=== PATIENT | male | born 1950 | race Caucasian/White ===

== ENCOUNTER 2018-06-18 07:56 | Day surgery (SDC) | payer MEDICARE, OTHER, SELFPAY ==
[2018-06-05 14:50] VITALS: BMI 27.8
[2018-06-18] VITALS (9 sets, daily range): BP systolic 93–159; BP diastolic 48–92; PULSE 45–73; RESP 10–16; TEMP 35.7–36.7; O2SAT 96–100; BMI 27.8
[2018-06-18] MEDS: ACETAMINOPHEN 325 MG TABLET 975 MG PO (09:03)
[2018-06-18] MEDS: CELECOXIB 200 MG CAPSULE PO (09:03)
[2018-06-18] MEDS: PREGABALIN 75 MG CAPSULE PO (09:03)
[2018-06-18] MEDS: LACTATED RINGERS 1,000 ML 42 ML IV (09:10)
--- NOTE | 2018-06-18 09:18 | PM.PREOP ---
Pre-operative Note Interval Note Pre-op Check: Yes History & Physical Reviewed by Physician and Yes Exam Performed Changes: No
--- NOTE | 2018-06-18 09:18 | PM.OP.1 ---
Operative Date/Time/Diagnoses Date of procedure: 06/18/18 Time of procedure: 11:05 Pre-op diagnosis: Left knee medial compartment osteoarthritis Post-op diagnosis: same Procedure & Clinicians Procedure: Left knee medial compartment arthroplasty Same procedure as scheduled: Yes Indications: The patient presents today for medial compartment knee arthroplasty after failure of conservative treatment. The nature of the procedure including the risks and benefits, alternatives, postoperative course and expected outcome were discussed and all questions answered. Consent was obtained. Operative site confirmed and marked. Surgeon: Bryce Thomas Manufacturing Technology Analyst: Osvaldo Slater Anesthesia Type: General and Local Operative Notes Findings: Severe medial compartment osteoarthritis. Closure Type: primary Specimen(s): none sent Implants & Drains: [employer] and [employer] ZUK: E femur, 4 tibia, 8 mm polyethylene tray. Applied: implant(s) Estimated Blood Loss (mL): 40 Blood products transfused: none Tourniquet time (min): 32 Procedure in detail: The patient was taken to the operative suite and placed under general anesthesia. The patient received prophylactic antibiotics 1 g of IV tranexamic acid prior to surgery. [The lateral aspect of the leg was prepped and the knee injected with 20 mL of 1% lidocaine with epinephrine.] The leg was prepped and draped in usual sterile fashion. The leg was exsanguinated with an Esmarch dressing and the tourniquet raised to 250 torr. A 10 cm medial parapatellar incision and arthrotomy was then made. The anterior aspect of the fat pad and medial meniscus was resected. A small amount of anterior tibial boss was resected with a oscillating saw. The knee was then extended and the alignment guide placed. The distal femoral and proximal tibial cutting guides were then pinned into place. The distal femoral cut was made in extension. The proximal tibial cut was made in flexion. All remaining meniscus was excised. Gaps were checked with blocks. Soft tissues were then injected with a combination of [40 mL of quarter percent Marcaine with epinephrine, 20 mL of Exparel]. The femur was sized and the appropriate cutting guide placed. The peg holes were drilled and chamfer cuts made. Next the tibia was sized and drilled. Trial components were then placed. The knee had good roman catholic of soft tissue tension without over correction. Range of motion was [full]. The trial components were removed. The knee was cleansed with Pulsavac irrigation and dried. The components were then cemented with high viscosity vacuum mixed bone cement. The knee was held in extension until the cement had adequately cured. The knee was then irrigated and inspected for any further debris. The extensor mechanism was closed at 90? of flexion with a few interrupted #1 Vicryl sutures and a running O V-LOC suture. [The knee was then filled with 50 mL of solution containing 1 g of tranexamic acid and 10 mL of 0.5% Marcaine.] The subcutaneous tissue was closed with 2-0 Vicryl. The skin was closed with a running 3 0 V-LOC suture and surgical adhesive. An Aquacel dressing was applied. The leg was then wrapped with an Gurwinder which will be kept on for the first 24 hours. The patient tolerated the procedure well and was returned to recovery room in good condition. Complications: none Condition: stable Disposition: same day surgery Plan for aftercare: Routine aftercare for medial compartment arthroplasty. Discharge to home. Weightbearing as tolerated. Aspirin for DVT prophylaxis. Clinic follow-up in 2 weeks. Physical therapy to start within 1 week.
[2018-06-18] MEDS: CEFAZOLIN 2 GM/100 ML FROZ.PIGGY IV (10:06)
[2018-06-18] MEDS: TRANEXAMIC ACID 1,000 MG VIAL 1000 MG INJ (10:15)
--- NOTE | 2018-06-18 10:32 | SUR.OPER ---
Supine on padded OR bed. Pillow under head, arms secured on padded armboards <90 degree abduction. Safety belt across torso. Non-operative leg secured with tape over blanket over lower leg. Operative leg secured in DeMayo/Efren positioner. Foam padded brace at thigh of operative leg.
[2018-06-18] MEDS: BUPIVACAINE 0.5% W/ EPI (PF) 20 ML, BUPIVACAINE LIPOSOME 266 MG, SODIUM CHLORIDE 0.9% 2... INJ (10:40)
[2018-06-18] MEDS: BUPIVACAINE 0.5% (PF) 10 ML, TRANEXAMIC ACID 1,000 MG, SODIUM CHLORIDE 0.9% 20 ML INJ (10:40)
[2018-06-18] MEDS: POVIDONE-IODINE 15 ML, SODIUM CHLORIDE 0.9% 250 ML TOP (10:41)
[2018-06-18] MEDS: OXYCODONE/ACETAMINOPHEN 5/325 TABLET 1 TAB PO (12:05)
== END 2018-06-18 13:05 | disposition home or self-care (01) ==
PROVIDERS: PCP Physician Assistant; Visit Provider Orthopaedic Surgery
PROC: (CPT 27446; principal; 2018-06-18 09:45)
DX: M17.12 Unilateral primary osteoarthritis, left knee (principal)
CPT/HCPCS: 27446; C1776; C9290; J0690; J2405; J2704; J3010

== ENCOUNTER → 2018-10-07 08:49 | Outpatient (CLI) | payer MEDICARE, OTHER, SELFPAY ==
[2018-10-07 09:56] LABS: BUN Creatinine Ratio 16.3 (6-22); Blood Urea Nitrogen 13 mg/dL (9-20); Calcium 9.6 mg/dL (8.4-10.2); Carbon Dioxide 27 mmol/L (22-32); Chloride 100 mmol/L (98-107); Cholesterol 278 mg/dL (140-199); Estimated Glomerular Filt Rate > 60.0 mL/min (>60); Glucose 96 mg/dL (80-110); HDL Cholesterol 62 mg/dL (40-60); HEMOLYSIS < 15 (0-50); LDL Cholesterol Calculated 191 mg/dL (<100); Potassium 4.3 mmol/L (3.4-5.1); Sodium 139 mmol/L (137-145); Triglycerides 127 mg/dL (35-150)
== END ==
PROVIDERS: Visit Provider Physician Assistant
DX: E74.8 Other specified disorders of carbohydrate metabolism (principal)
CPT/HCPCS: 36415; 80048; 80061

== ENCOUNTER → 2020-03-03 08:40 | Outpatient (CLI) | payer MEDICARE, OTHER, SELFPAY ==
[2020-03-03 09:42] LABS: Hemoglobin A1C% w Est Avg Glu 5.5 % (4.0-6.0)
[2020-03-03 09:56] LABS: Alanine Aminotransferase 39 IU/L (<50); Albumin 4.4 g/dL (3.5-5.0); Albumin Globulin Ratio 1.4 (1.0-2.8); Alkaline Phosphatase 53 U/L (38-126); Aspartate Aminotransferase 93 IU/L (17-59); BUN Creatinine Ratio 15.7 (6-22); Bilirubin Total 0.9 mg/dL (0.2-1.3); Blood Urea Nitrogen 13 mg/dL (9-20); Carbon Dioxide 30 mmol/L (22-32); Chloride 98 mmol/L (98-107); Cholesterol 258 mg/dL (140-199); Estimated Glomerular Filt Rate > 60.0 mL/min (>60); Globulin 3.1 g/dL (1.7-4.1); Glucose 90 mg/dL (80-110); HDL Cholesterol 49 mg/dL (40-60); HEMOLYSIS < 15 (0-50); LDL Cholesterol Calculated 188 mg/dL (<100); Potassium 4.4 mmol/L (3.4-5.1); Sodium 135 mmol/L (137-145); Total Protein 7.5 g/dL (6.3-8.2); Triglycerides 106 mg/dL (35-150)
[2020-03-03 10:23] LABS: Prostate Specific Antigen Scrn 0.798 ng/mL (0.1-4.0); TSH w/ Reflex to FT4 2.05 uIU/mL (0.47-4.68)
== END ==
PROVIDERS: Referring Provider Family Medicine; Visit Provider Family Medicine
DX: Z13.1 Encounter for screening for diabetes mellitus (principal); Z76.89 Persons encountering health services in other specified circumstances; Z13.29 Encounter for screening for other suspected endocrine disorder; Z12.5 Encounter for screening for malignant neoplasm of prostate; R73.09 Other abnormal glucose; E78.00 Pure hypercholesterolemia, unspecified; R53.83 Other fatigue
CPT/HCPCS: 36415; 80053; 80061; 83036; 84443; G0103

== ENCOUNTER → 2020-06-09 14:46 | Outpatient (CLI) | payer MEDICARE, OTHER, SELFPAY ==
[2020-06-11 11:36] LABS: COVID19 Sendout Not Detected (Not Detected)
== END ==
PROVIDERS: Visit Provider Physician Assistant
DX: Z03.818 Encounter for observation for suspected exposure to other biological agents ruled out (principal)
CPT/HCPCS: 87635

== ENCOUNTER 2021-02-12 09:55 | Outpatient (RCR) | payer MEDICARE, OTHER, SELFPAY ==
--- NOTE | 2021-02-12 14:14 | PT.OIE ---
Current Diagnoses Strain of muscle, fascia and tendon of lower back, initial encounter (02/12/21) Strain of muscle, fascia and tendon of lower back, subsequent encounter (02/12/21) Past Medical History (Last Reviewed 01/12/21 @ 13:02 by Radhames Dinero DO) Actinic keratosis Ankle pain, right Arthritis of both knees Back pain, chronic Elevated liver function tests Environmental allergies Fractures Hearing deficit History of headache History of migraine headaches Lumbar strain Bhumika's disease Positive PPD (~1992) Retinal scar Shoulder pain Tinnitus (~2012) Past Surgical History (Last Updated 06/05/18 @ 15:23 by Jaylin Vazquez RN) H/O hernia repair (~1957) History of colonoscopy (~2012) History of surgery on arm (~09/18/15) History of tonsillectomy Visit Care Team Role Provider Type Radhames Dinero DO Attending Provider Physician Primary Care Provider Referring Provider Specialty: [facility] Address: [address] [place] [address] Email: [email or web address] Therapy Initial Evaluation PT-OP-A Visit Information Start: 02/12/21 14:00 Freq: Status: Active Protocol: Document 02/12/21 10:30 DCW (Rec: 02/12/21 14:08 [facility] [id number]) Out-Patient Physical Therapy Visit Information Visit Information Visit Type Initial Evaluation Visit Start Time 10:30 Visit Stop Time 11:10 Total Visit Minutes 40 Visit Number 1 Number of REHABILITATION COUNSELLOR Visits 0 Evaluation Information Evaluation Date 02/12/21 PT-OP-B Current Condition Start: 02/12/21 14:00 Freq: Status: Active Protocol: Document 02/12/21 10:30 DCW (Rec: 02/12/21 14:08 [facility] [id number]) Current Condition History of Current Condition Onset Date One month Current Complaints Low back pain History of Current Condition Pt is a 70 year old male presenting with a one month history of low back pain. Pt reports he was shoveling snow for four hours one day, and was pretty sore, and then the next day was loading tools into his vehicle, and experienced increased pain and tightness along his left low back. 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 At the moment, pt does not have any real problems, but wanted to come in to his eval in order to assess his back and make sure there was nothing else going on, and to learn some appropriate stretches. Prior Functional Status Baseline Function- ADL's Independent Baseline Function- Mobility Independent Current Functional Impairments (Reported) Functional Limitations- ADL's Independent Functional Limitations- Mobility/Gait Independent Functional Limitations- Recreation/ Independent Hobbies PT-OP-C Subjective Start: 02/12/21 14:00 Freq: Status: Active Protocol: Document 02/12/21 10:30 DCW (Rec: 02/12/21 14:08 DCW [id number]) OP-PT Subjective Patient Comments Patient Comments I do yoga every morning, and that has really helped. Patient Reported Progress Improving Patient Questionnaires Oswestry Low Back Index Oswestry Score 14% Oswestry Impairment 1 to 19% Impaired (Score 1-19) OP-PT Pain Assessment Pain Assessment Grid Paper Pain Assessment Grid Completed Yes Location Lower Back Intensity 1 Scale Used Numeric (0 - 10) PT-OP-F Manual Assessment Start: 02/12/21 14:00 Freq: Status: Active Protocol: Document 02/12/21 10:30 DCW (Rec: 02/12/21 14:11 DCW [id number]) Manual Assessments Soft Tissue Assessment Soft Tissue Mobility Assessment Mild tone with tenderness to palpation 1/4: Complaint of pain along left QL, left piriformis PT-OP-K Range of Motion Start: 02/12/21 14:00 Freq: Status: Active Protocol: Document 02/12/21 10:30 DCW (Rec: 02/12/21 14:11 DCW [id number]) Lumbar Spine Range of Motion Lumbar Spine Active Percentage Testing Position Standing Flexion 100 Extension 100 Lateral Flexion Left 100 Lateral Flexion Right 100 PT-OP-L Special Tests Start: 02/12/21 14:00 Freq: Status: Active Protocol: Document 02/12/21 10:30 DCW (Rec: 02/12/21 14:11 DCW [id number]) Special Tests Lumbar Spine Special Tests Compression Test Results Negative Slump Test Results Negative PT-OP-Q Treatments Start: 02/12/21 14:00 Freq: Status: Active Protocol: Document 02/12/21 10:30 DCW (Rec: 02/12/21 14:11 [facility] [id number]) Therapeutic Exercises Supine Exercises 1 Supine Exercise Name Piriformis stretch Side left Comments Figure-4, Knee to opposite shoulder Sitting Exercises 1 Sitting Exercise Name Piriformis stretch Side left Comments Seated figure-4 PT-OP-T Assessment and Plan Start: 02/12/21 14:00 Freq: Status: Active Protocol: Document 02/12/21 10:30 DCW (Rec: 02/12/21 14:14 [facility] [id number]) Physical Therapy Assessment Rehab Potential Rehabilitation Potential Excellent Evaluation Complexity Number of Personal Factors/Comorbidities 0 Number of Body Systems Impaired 1-2 Clinical Presentation at Evaluation Stable Assessment Summary Assessment Pt has largely recovered from initial injury one month ago. Pt mainly interested today in new stretches for low back and posterior hips. Pt very active with hobbies and yoga, overall in very good shape. Presenting with very mild tightness in left QL and piriformis, comfortable with HEP stretches given at evaluation. Pt agreeable to discharge following eval, does not feel he needs any further treatment or instruction. Physical Therapy Plan Frequency and Duration Frequency of Treatment 1x/Week Duration of Treatment 1 day Plan of Care Start Date 02/12/21 Plan of Care End Date 02/13/21 Discharge Physical Therapy Discharge Comments No further PT indicated - Eval and discharge Next Visit Focus/Plan Next Note Type Discharge Summary
--- NOTE | 2021-02-12 14:15 | PT.OPPOC ---
Physical, Occupational & Speech Therapy At [facility] Current Diagnoses Strain of muscle, fascia and tendon of lower back, initial encounter (02/12/21) Strain of muscle, fascia and tendon of lower back, subsequent encounter (02/12/21) Visit Care Team Role Provider Type Radhames Dinero DO Attending Provider Physician Primary Care Provider Referring Provider Specialty: [facility] Address: [address] [place] [address], [facility] Email: [email or web address] Plan Of Care PT-OP-T Assessment and Plan Start: 02/12/21 14:00 Freq: Status: Active Protocol: Document 02/12/21 10:30 DCW (Rec: 02/12/21 14:14 DCW [id number]) Physical Therapy Assessment Rehab Potential Rehabilitation Potential Excellent Evaluation Complexity Number of Personal Factors/Comorbidities 0 Number of Body Systems Impaired 1-2 Clinical Presentation at Evaluation Stable Assessment Summary Assessment Pt has largely recovered from initial injury one month ago. Pt mainly interested today in new stretches for low back and posterior hips. Pt very active with hobbies and yoga, overall in very good shape. Presenting with very mild tightness in left QL and piriformis, comfortable with HEP stretches given at evaluation. Pt agreeable to discharge following eval, does not feel he needs any further treatment or instruction. Physical Therapy Plan Frequency and Duration Frequency of Treatment 1x/Week Duration of Treatment 1 day Plan of Care Start Date 02/12/21 Plan of Care End Date 02/13/21 Discharge Physical Therapy Discharge Comments No further PT indicated - Eval and discharge Next Visit Focus/Plan Next Note Type Discharge Summary Plan of Care Dates Plan of Care Start Date 02/12/21 Plan of Care End Date 02/13/21 Electronically Signed by: Alex Nayak, PT 02/12/21 1619 Please Sign and Return: I have reviewed this Plan of Care and certify that the skilled therapy services above are required to meet the patient?s needs. Physician Signature Date Printed Name and Credentials Clinical Instructor Signature Printed Name and Credentials
== END 2021-02-12 14:26 | disposition home or self-care (01) ==
LOC: PHYS 09:55
PROVIDERS: PCP Family Medicine; Referring Provider Family Medicine; Visit Provider Family Medicine
DX: S39.012A Strain of muscle, fascia and tendon of lower back, initial encounter (principal); S39.012D Strain of muscle, fascia and tendon of lower back, subsequent encounter
CPT/HCPCS: 97110; 97161

== ENCOUNTER → 2021-03-05 09:39 | Outpatient (CLI) | payer MEDICARE, OTHER, SELFPAY ==
[2021-03-05 10:35] LABS: Add Manual Diff / Slide Review NO; Basophils Absolute Auto 0 /uL (0-100); Eosinophils Absolute Auto 200 /uL (0-450); Hematocrit 39.4 % (41-53); Hemoglobin 13.6 g/dL (13.5-17.5); Lymphocytes Absolute Auto 1700 /uL (1100-4500); Lymphocytes Percent Auto 34.9 % (25-40); Mean Corpuscular HGB Conc 34.6 % (30-36); Mean Corpuscular Hemoglobin 31.5 PG (26-34); Mean Corpuscular Volume 91.1 fL (80-100); Monocytes Absolute Auto 500 /uL (0-900); Monocytes Percent Auto 10.2 % (3-14); Neutrophils Absolute Auto 2400 /uL (1500-7000); Neutrophils Percent Auto 48.9 % (50-75); Platelet Count 260 X10^3/uL (150-400); Red Blood Cell Count 4.32 X10^6/uL (4.5-5.9); Red Cell Distribution Width 13.2 % (11.6-14.8); White Blood Cell Count 4.8 X10^3/uL (4.5-11.0)
[2021-03-05 11:02] LABS: Alanine Aminotransferase 66 IU/L (<50); Albumin 4.2 g/dL (3.5-5.0); Albumin Globulin Ratio 1.3 (1.0-2.8); Alkaline Phosphatase 52 U/L (38-126); Aspartate Aminotransferase 91 IU/L (17-59); BUN Creatinine Ratio 18.4 (6-22); Bilirubin Total 0.5 mg/dL (0.2-1.3); Blood Urea Nitrogen 14 mg/dL (9-20); Calcium 9.7 mg/dL (8.4-10.2); Carbon Dioxide 29 mmol/L (22-32); Chloride 103 mmol/L (98-107); Cholesterol 248 mg/dL (140-199); Estimated Glomerular Filt Rate > 60.0 mL/min (>60); Globulin 3.2 g/dL (1.7-4.1); Glucose 102 mg/dL (80-110); HDL Cholesterol 54 mg/dL (40-60); HEMOLYSIS < 15 (0-50); LDL Cholesterol Calculated 171 mg/dL (<100); Potassium 5.1 mmol/L (3.4-5.1); Sodium 137 mmol/L (137-145); Total Protein 7.4 g/dL (6.3-8.2); Triglycerides 117 mg/dL (35-150)
[2021-03-05 11:28] LABS: Prostate Specific Antigen Scrn 1.04 ng/mL (0.1-4.0)
[2021-03-05 11:30] LABS: TSH w/ Reflex to FT4 1.81 uIU/mL (0.47-4.68)
== END ==
PROVIDERS: PCP Family Medicine; Referring Provider Family Medicine; Visit Provider Family Medicine
DX: Z00.00 Encounter for general adult medical examination without abnormal findings (principal); R03.0 Elevated blood-pressure reading, without diagnosis of hypertension; Z12.5 Encounter for screening for malignant neoplasm of prostate; Z13.220 Encounter for screening for lipoid disorders; Z13.228 Encounter for screening for other metabolic disorders; Z13.29 Encounter for screening for other suspected endocrine disorder; E78.5 Hyperlipidemia, unspecified
CPT/HCPCS: 36415; 80053; 80061; 84443; 85025; G0103

== ENCOUNTER → 2021-11-30 13:13 | Outpatient (CLI) | payer MEDICARE, OTHER, SELFPAY ==
[2021-11-30 18:50] LABS: COVID19 -Nasal RAPID Negative (Negative)
== END ==
PROVIDERS: PCP Family Medicine; Visit Provider Nurse Practitioner Family
DX: Z20.822 Contact with and (suspected) exposure to COVID-19 (principal); R09.89 Other specified symptoms and signs involving the circulatory and respiratory systems
CPT/HCPCS: 87635

== ENCOUNTER → 2022-01-28 12:24 | Outpatient (CLI) | payer MEDICARE, OTHER, SELFPAY ==
[2022-01-28 14:05] LABS: Influenza A - CEPHEID Flu A NEGATIVE (NEGATIVE); Influenza B - CEPHEID Flu B NEGATIVE (NEGATIVE)
[2022-01-28 14:06] LABS: COVID-19 CEPHEID PCR (VTM/NP) Negative (Negative)
== END ==
PROVIDERS: PCP Family Medicine; Visit Provider Student in an Organized Health Care Education/Training Program
DX: R50.9 Fever, unspecified (principal); Z20.822 Contact with and (suspected) exposure to COVID-19
CPT/HCPCS: 0240U

== ENCOUNTER → 2023-01-14 10:35 | Outpatient (CLI) | payer MEDICARE, OTHER, SELFPAY ==
[2023-01-14 10:59] LABS: Add Manual Diff / Slide Review NO; Basophils Absolute Auto 0 /uL (0-100); Basophils Percent Auto 0.6 % (0-2); Eosinophils Absolute Auto 100 /uL (0-450); Eosinophils Percent Auto 2.1 % (2-4); Hematocrit 39.4 % (41-53); Hemoglobin 13.4 g/dL (13.5-17.5); Lymphocytes Absolute Auto 1800 /uL (1100-4500); Mean Corpuscular Hemoglobin 30.6 PG (26-34); Mean Corpuscular Volume 90.2 fL (80-100); Monocytes Absolute Auto 500 /uL (0-900); Monocytes Percent Auto 8.9 % (3-14); Neutrophils Absolute Auto 3300 /uL (1500-7000); Neutrophils Percent Auto 57.4 % (50-75); Platelet Count 288 X10^3/uL (150-400); Red Blood Cell Count 4.37 X10^6/uL (4.5-5.9); Red Cell Distribution Width 13.8 % (11.6-14.8); White Blood Cell Count 5.7 X10^3/uL (4.5-11.0)
[2023-01-14 11:06] LABS: Alanine Aminotransferase 40 IU/L (<50); Albumin 4.3 g/dL (3.5-5.0); Albumin Globulin Ratio 1.1 (1.0-2.8); Alkaline Phosphatase 66 U/L (38-126); Aspartate Aminotransferase 62 IU/L (17-59); BUN Creatinine Ratio 17.9 (6-22); Bilirubin Total 0.6 mg/dL (0.2-1.3); Blood Urea Nitrogen 17 mg/dL (9-20); Calcium 9.1 mg/dL (8.4-10.2); Carbon Dioxide 30 mmol/L (22-32); Chloride 99 mmol/L (98-107); Cholesterol 261 mg/dL (140-199); Estimated Glomerular Filt Rate > 60 mL/min (>60); Globulin 3.9 g/dL (1.7-4.1); Glucose 98 mg/dL (80-110); HDL Cholesterol 46 mg/dL (40-60); HEMOLYSIS < 15 (0-50); LDL Cholesterol Calculated 187 mg/dL (<100); Potassium 4.5 mmol/L (3.4-5.1); Sodium 136 mmol/L (137-145); Total Protein 8.2 g/dL (6.3-8.2); Triglycerides 140 mg/dL (35-150)
[2023-01-14 11:34] LABS: Prostate Specific Antigen Scrn 1.46 ng/mL (0.1-4.0)
[2023-01-14 12:03] LABS: TSH w/ Reflex to FT4 2.04 uIU/mL (0.47-4.68)
== END ==
PROVIDERS: PCP Family Medicine; Referring Provider Family Medicine; Visit Provider Family Medicine
DX: Z00.00 Encounter for general adult medical examination without abnormal findings (principal); E74.04 McArdle disease; E78.5 Hyperlipidemia, unspecified; Z12.5 Encounter for screening for malignant neoplasm of prostate; R94.5 Abnormal results of liver function studies
CPT/HCPCS: 36415; 80053; 80061; 84443; 85025; G0103

== ENCOUNTER → 2023-03-20 12:17 | Outpatient (CLI) | payer MEDICARE, OTHER, SELFPAY ==
[2023-03-20 13:32] LABS: Influenza A - CEPHEID Flu A NEGATIVE (NEGATIVE); Influenza B - CEPHEID Flu B NEGATIVE (NEGATIVE); Respiratory Syncytial Virus Negative (Negative)
[2023-03-20 13:34] LABS: COVID-19 CEPHEID 4-PLEX PCR Negative (Negative)
== END ==
PROVIDERS: PCP Family Medicine; Visit Provider Nurse Practitioner Family
DX: R05.1 Acute cough (principal); Z20.822 Contact with and (suspected) exposure to COVID-19
CPT/HCPCS: 0241U

== ENCOUNTER → 2023-12-10 09:33 | Outpatient (CLI) | payer MEDICARE, OTHER, SELFPAY ==
[2023-12-10 10:23] LABS: Add Manual Diff / Slide Review NO; Basophils Absolute Auto 0 /uL (0-100); Basophils Percent Auto 0.7 % (0-2); Eosinophils Absolute Auto 200 /uL (0-450); Eosinophils Percent Auto 2.5 % (2-4); Hematocrit 38.3 % (41-53); Hemoglobin 13.2 g/dL (13.5-17.5); Lymphocytes Absolute Auto 1600 /uL (1100-4500); Lymphocytes Percent Auto 21.2 % (25-40); Mean Corpuscular HGB Conc 34.5 % (30-36); Mean Corpuscular Hemoglobin 30.8 PG (26-34); Mean Corpuscular Volume 89.3 fL (80-100); Monocytes Absolute Auto 600 /uL (0-900); Monocytes Percent Auto 8.5 % (3-14); Neutrophils Absolute Auto 4900 /uL (1500-7000); Neutrophils Percent Auto 67.1 % (50-75); Platelet Count 275 X10^3/uL (150-400); Red Blood Cell Count 4.28 X10^6/uL (4.5-5.9); White Blood Cell Count 7.3 X10^3/uL (4.5-11.0)
[2023-12-10 11:49] LABS: HEMOLYSIS < 15 (0-50); Iron 163 ug/dL (49-181)
[2023-12-10 11:59] LABS: Percent Iron Saturation 52 % (20-50); Total Iron Binding Capacity 311 ug/dL (261-462); Transferrin 267 mg/dL (206-381)
[2023-12-10 12:16] LABS: Ferritin 41 ng/mL (18-464)
== END ==
LOC: LAB 09:35
PROVIDERS: PCP Family Medicine; Referring Provider Family Medicine; Visit Provider Family Medicine
DX: D64.9 Anemia, unspecified (principal)
CPT/HCPCS: 36415; 82728; 83540; 83550; 85025

== ENCOUNTER → 2024-01-15 09:38 | Outpatient (CLI) | payer MEDICARE, OTHER, SELFPAY ==
[2024-01-15 10:42] LABS: Alanine Aminotransferase 26 IU/L (<50); Albumin 4.3 g/dL (3.5-5.0); Albumin Globulin Ratio 1.3 (1.0-2.8); Alkaline Phosphatase 58 U/L (38-126); Aspartate Aminotransferase 39 IU/L (17-59); BUN Creatinine Ratio 17.8 (6-22); Bilirubin Total 0.8 mg/dL (0.2-1.3); Blood Urea Nitrogen 19 mg/dL (9-20); Calcium 9.7 mg/dL (8.4-10.2); Carbon Dioxide 31 mmol/L (22-32); Chloride 101 mmol/L (98-107); Estimated Glomerular Filt Rate > 60 mL/min (>60); Globulin 3.4 g/dL (1.7-4.1); Glucose 90 mg/dL (80-110); HEMOLYSIS < 15 (0-50); Potassium 4.5 mmol/L (3.4-5.1); Sodium 134 mmol/L (137-145); Total Protein 7.7 g/dL (6.3-8.2)
[2024-01-15 11:15] LABS: Prostate Specific Antigen Scrn 1.52 ng/mL (0.1-4.0)
[2024-01-15 11:34] LABS: Vitamin B12 641 pg/mL (239-931)
== END ==
LOC: LAB 09:40
PROVIDERS: PCP Family Medicine; Referring Provider Family Medicine; Visit Provider Family Medicine
DX: Z12.5 Encounter for screening for malignant neoplasm of prostate (principal); E78.5 Hyperlipidemia, unspecified; D64.9 Anemia, unspecified; E74.04 McArdle disease
CPT/HCPCS: 36415; 80053; 82607; 85045; G0103

== ENCOUNTER 2024-01-23 14:31 | Day surgery (SDC) | payer MEDICARE, OTHER, SELFPAY ==
[2024-01-23 14:51] VITALS: BP 157/87; PULSE 68; RESP 16; TEMP 36.6; O2SAT 98
[2024-01-23] MEDS: LACTATED RINGERS 1,000 ML 42 ML IV (15:08)
--- NOTE | 2024-01-23 15:36 | P.HP_ITS ---
History of Present Illness History of Present Illness Date Patient Seen: 01/23/24 Time Patient Seen: 15:37 Chief complaint: Screening Colonoscopy Narrative: 73-year-old man here for screening colonoscopy. Last colonoscopy 10 years ago normal. No family history of intestinal malignancy. No abdominal concerns today. 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 Tinnitus (~2012) Bhumika's disease Surgical History History of tonsillectomy H/O hernia repair (~1957) History of colonoscopy (~2012) History of surgery on arm (~09/18/15) Social History household members: spouse Smoking Status: Never smoker alcohol intake: current Meds Home Medications and Allergies Home Medications Medication Instructions Recorded Confirmed Type cholecalciferol (vitamin D3) 25 1,000 unit PO DAILY 06/05/18 01/15/24 History mcg (1,000 unit) capsule (Vitamin D3) yporciwemehf-vrvohtlr-sajltl 1 tab PO DAILY 06/05/18 01/15/24 History tablet (Multivitamin 50 Plus tablet) vit C 250 mg-vit E 90 mg-zinc 40 1 tab PO BID 06/11/18 01/15/24 History mg-copper 1 jk-kbebma-qmllez capsule (PreserVision AREDS-2) aspirin 81 mg tablet,delayed 81 mg PO DAILY 06/18/18 01/23/24 History release (Aspir-) peg 3350-sod sulf,ahsgl-hlv-dbr 1,000 ml PO DIRECTED #2,000 mL 12/16/23 01/15/24 Rx 178.7-7.3-0.5-1.12-0.9 gram oral soln (Suflave) ashwagandha extract PO 01/15/24 01/15/24 History coenzyme Q10 [Ultra CoQ10] PO 01/15/24 01/15/24 History magnesium chloride PO 01/15/24 01/15/24 History omega-3 fatty acids [Fish Oil] PO 01/15/24 01/15/24 History triamcinolone acetonide 0.1 % 1 applic topical DAILY #30 grams 01/15/24 01/15/24 Rx topical cream vitamin K2 PO 01/15/24 01/15/24 History Allergies Allergy/AdvReac Type Severity Reaction Status Date / Time No Known Drug Allergies Allergy Verified 01/23/24 14:49 Exam Vital Signs (past 8 hours): - 01/23/24 14:51 Temperature 98 F Pulse Rate 68 Respiratory Rate 16 Blood Pressure 157/87 H Pulse Oximetry 98 Oxygen Delivery Method Room Air Oxygen Delivery Method Room Air Narrative Exam Narrative: General adult man alert oriented no acute distress Chest nonlabored respiration Extremities warm well perfused Assessment & Plan Assessment & Plan narrative: The patient requires colorectal screening and colonoscopy is recommended. Technical details were discussed. Risks, benefits, alternatives explained. Risks including but not limited to myocardial infarction, aspiration, bleeding, pain, missed lesion, incomplete examination, need for further radiographic studies, colonic perforation, and need for major abdominal surgery were discussed. All questions were answered to their satisfaction, and they are in agreement with this plan.
[2024-01-23 16:01] VITALS: BP 120/70; PULSE 58; RESP 12; TEMP 36.7; O2SAT 96
[2024-01-23 16:07] VITALS: BP 129/79; PULSE 61; RESP 14; O2SAT 97
--- NOTE | 2024-01-23 16:10 | P.OP.COLON_ITS ---
Operative Date/Time/Diagnoses Date of procedure: 01/23/24 Time of procedure: 16:10 Pre-op diagnosis: Colorectal screening Procedure & Clinicians Study performed: Colonoscopy Same procedure as scheduled: Yes Indications: Colorectal screening Surgeon: Geronimo Lu Procedure Notes Procedure in detail: The history and physical was performed/updated and the patient is ASA class is 2. The procedure was discussed in detail with the patient. Potential risks complications including infection, bleeding, missed diagnosis, perforation, need for surgery, and were explained. Their questions were answered and informed consent was obtained. Patient was brought to the procedure room and placed standard monitoring equipment. The patient's vital signs were monitored continuously throughout the entire procedure. Prior to starting time-out was performed. The patient was placed in the left lateral recumbent position. Procedural sedation was administered by anesthesia. Examination began with a thorough inspection of the perianal area there was no evidence of fissures, fistulae, external hemorrhoids or cutaneous malignancy. The colonoscopy scope was then placed into the anal canal and was advanced to the cecum, which was identified by the ileocecal valve , the appendiceal orifice and the confluence of the taenia. The scope was then slowly withdrawn examining colon thoroughly in all directions, irrigating it of any residual stool. The scope was retroflexed within the rectum The patient tolerated the procedure well. They will be discharged once criteria are met. The prep was of good/excellent quality. The withdrawl time was 6 minutes. FINDINGS * Unremarkable colonoscopy. Normal healthy colonic mucosa without masses polyps or inflammation. Specimen(s): none sent Impression: Normal colonoscopy Post-procedure Plan for aftercare: No further colonoscopy necessary Disposition: same day surgery
[2024-01-23 16:12] VITALS: BP 143/85; PULSE 62; RESP 12; O2SAT 98
[2024-01-23 16:17] VITALS: BP 152/87; PULSE 57; RESP 16; O2SAT 98
== END 2024-01-23 16:36 | disposition home or self-care (01) ==
PROVIDERS: PCP Family Medicine; Referring Provider Surgery; Visit Provider Surgery
PROC: 0DJD8ZZ Inspection of Lower Intestinal Tract, Via Natural or Artificial Opening Endoscopic (ICD-10-PCS; CPT 45378; principal; 2024-01-23 14:00)
DX: Z12.11 Encounter for screening for malignant neoplasm of colon (principal)
CPT/HCPCS: G0121; J2704

== ENCOUNTER → 2024-04-07 15:54 | Outpatient (CLI) | payer MEDICARE, OTHER, SELFPAY ==
[2024-04-07 17:17] LABS: Add Manual Diff / Slide Review NO; Basophils Absolute Auto 100 /uL (0-100); Basophils Percent Auto 0.8 % (0-2); Eosinophils Absolute Auto 100 /uL (0-450); Eosinophils Percent Auto 1.7 % (2-4); Hematocrit 39.6 % (41-53); Hemoglobin 13.5 g/dL (13.5-17.5); Lymphocytes Absolute Auto 2500 /uL (1100-4500); Lymphocytes Percent Auto 29.9 % (25-40); Mean Corpuscular HGB Conc 34.1 % (30-36); Mean Corpuscular Hemoglobin 31.4 PG (26-34); Monocytes Absolute Auto 800 /uL (0-900); Monocytes Percent Auto 9.2 % (3-14); Neutrophils Absolute Auto 4800 /uL (1500-7000); Neutrophils Percent Auto 58.4 % (50-75); Platelet Count 272 X10^3/uL (150-400); Red Cell Distribution Width 13.5 % (11.6-14.8); White Blood Cell Count 8.2 X10^3/uL (4.5-11.0)
[2024-04-07 17:49] LABS: Alanine Aminotransferase 35 IU/L (<50); Albumin 4.4 g/dL (3.5-5.0); Albumin Globulin Ratio 1.5 (1.0-2.8); Alkaline Phosphatase 62 U/L (38-126); Aspartate Aminotransferase 42 IU/L (17-59); BUN Creatinine Ratio 18.1 (6-22); Bilirubin Total 0.5 mg/dL (0.2-1.3); Blood Urea Nitrogen 17 mg/dL (9-20); Calcium 9.2 mg/dL (8.4-10.2); Carbon Dioxide 30 mmol/L (22-32); Chloride 100 mmol/L (98-107); Estimated Glomerular Filt Rate > 60 mL/min (>60); Glucose 81 mg/dL (80-110); HEMOLYSIS < 15 (0-50); Potassium 4.7 mmol/L (3.4-5.1); Sodium 136 mmol/L (137-145); Total Protein 7.4 g/dL (6.3-8.2)
== END ==
PROVIDERS: PCP Family Medicine; Referring Provider Physician Assistant; Visit Provider Physician Assistant
DX: Z20.7 Contact with and (suspected) exposure to pediculosis, acariasis and other infestations (principal)
CPT/HCPCS: 36415; 80053; 85025

== ENCOUNTER → 2024-04-08 10:26 | Outpatient (CLI) | payer MEDICARE, OTHER, SELFPAY | PROVIDERS: PCP Family Medicine; Referring Provider Physician Assistant; Visit Provider Physician Assistant | DX: Z20.7 Contact with and (suspected) exposure to pediculosis, acariasis and other infestations (principal) | CPT/HCPCS: 87177 ==

== ENCOUNTER → 2024-04-19 11:24 | Outpatient (CLI) | payer MEDICARE, OTHER, SELFPAY | PROVIDERS: PCP Family Medicine; Referring Provider Physician Assistant; Visit Provider Physician Assistant | DX: Z20.7 Contact with and (suspected) exposure to pediculosis, acariasis and other infestations (principal) | CPT/HCPCS: 87177 ==

== ENCOUNTER → 2024-05-10 10:51 | Outpatient (CLI) | payer MEDICARE, OTHER, SELFPAY ==
--- NOTE | 2024-05-10 10:53 | DI.RAD.S_ITS ---
PROCEDURE: XR FOOT RT MIN 3V INDICATIONS: Right foot swelling TECHNIQUE: 2 views of the foot were acquired. COMPARISON: None. FINDINGS: Bones: No fractures or dislocations. No suspicious bony lesions. Soft tissues: No tibiotalar joint effusion. Achilles tendon appears normal. IMPRESSION: No visualized acute fracture or dislocation. However, if clinical concern and/or pain persist, short interval imaging followup in 7-10 days is recommended, as occult injury cannot be definitively excluded. Dictated by: Siena Abreu M.D. on 05/10/2024 at 15:41 Approved by: Siena Abreu M.D. on 05/10/2024 at 15:42
--- NOTE | 2024-05-10 10:53 | DI.RAD.S_ITS ---
PROCEDURE: XR ANKLE RT MIN 3V INDICATIONS: Right ankle swelling TECHNIQUE: 2 views of the ankle were acquired. COMPARISON: [facility], , XR FOOT RT MIN 3V, 05/10/2024, 10:51. FINDINGS: Bones: No fractures or dislocations. Ankle mortise is normally aligned. No suspicious bony lesions. Soft tissues: No tibiotalar joint effusion. Achilles tendon appears normal. IMPRESSION: No visualized acute fracture or dislocation. However, if clinical concern and/or pain persist, short interval imaging followup in 7-10 days is recommended, as occult injury cannot be definitively excluded. Dictated by: Siena Abreu M.D. on 05/10/2024 at 15:42 Approved by: Siena Abreu M.D. on 05/10/2024 at 15:43
== END ==
PROVIDERS: PCP Family Medicine; Referring Provider Nurse Practitioner Family; Visit Provider Nurse Practitioner Family
DX: M25.471 Effusion, right ankle (principal); R60.0 Localized edema
CPT/HCPCS: 73610; 73630

== ENCOUNTER → 2024-06-11 18:39 | Outpatient (CLI) | payer MEDICARE, OTHER, SELFPAY ==
--- NOTE | 2024-06-11 18:41 | DI.MRI.S_ITS ---
PROCEDURE: MR ANKLE RT WO CON INDICATIONS: continued right ankle pain swelling TECHNIQUE: Noncontrast sagittal T1 spin echo and T2 fast spin echo with fat saturation, axial proton density fast spin echo and T2 fast spin echo with fat saturation, coronal T1 spin echo and T2 fast spin echo with fat saturation through the ankle/hindfoot. COMPARISON: [facility], CR, XR ANKLE RT MIN 3V, 05/10/2024, 10:51. FINDINGS: Image quality: Excellent Tendons: Mild tenosynovitis of the posterior tibialis and the flexor digitorum longus. The flexor hallucis longus tendon is unremarkable. The extensor tendons are unremarkable. Mild tendinosis of the peroneal tendon with longitudinal split tear of the peroneal brevis. The peroneal longus tendon is intact. The distal Achilles tendon is unremarkable. Ligaments: The anterior and posterior tibiofibular ligaments are intact. The anterior and posterior talofibular ligaments are intact. Mild thickening of the calcaneofibular ligament, representing prior sprain. The deep portion of the deltoid ligament is intact. Sinus tarsi: No fibrosis Plantar fascia: Unremarkable Muscles: Normal in signal Bones: Small subchondral cystic changes in the calcaneal tuberosity, reactive. There is mild diffuse marrow edema of the anterior process of the calcaneus, without fracture line, favoring to represent mild marrow contusion. Additional corresponding mild marrow edema of the plantar aspect of the talus head, without fracture line, favoring to represent mild marrow contusion as well. Mild marrow contusion of the proximal navicular, without acute fracture. No significant tibiotalar effusion. Small amount of fluid in the posterior subtalar recess. Diffuse subcutaneous edema of the ankle, extending to the dorsal foot. IMPRESSION: 1. Launch split tear of the peroneal brevis. 2. Mild marrow contusion of the anterior process of the calcaneus, the plantar aspect of the talus head, in the proximal navicular. No acute fracture. 3. Diffuse subcutaneous edema of the ankle, extending to the dorsal foot. Dictated by: Lorena Pool M.D. on 06/14/2024 at 10:42 Approved by: Lorena Pool M.D. on 06/14/2024 at 10:50
== END ==
PROVIDERS: Family Provider Family Medicine; PCP Family Medicine; Referring Provider Family Medicine; Visit Provider Family Medicine
DX: S96.811A Strain of other specified muscles and tendons at ankle and foot level, right foot, initial encounter (principal); S90.01XA Contusion of right ankle, initial encounter; M25.571 Pain in right ankle and joints of right foot; M25.471 Effusion, right ankle; G89.29 Other chronic pain
CPT/HCPCS: 73721

== ENCOUNTER 2024-08-05 10:30 | Outpatient (RCR) | payer MEDICARE, OTHER, SELFPAY ==
--- NOTE | 2024-06-22 15:15 | PT.OPPOC ---
Physical, Occupational & Speech Therapy At [facility] Current Diagnoses Effusion, right ankle (06/22/24) Pain in right ankle and joints of right foot (06/22/24) Visit Care Team Role Provider Type Radhames Dinero DO Family Provider Physician Primary Care Provider Specialty: [facility] Practice Address: [address] [place] [address], [address] Email: [email or web address] RAMON Alegria Attending Provider Advanced Bead Trimmer Referring Provider Specialty: [facility] Address: [address] [facility], [facility] [address], [place], [address] Phone: Fax: Email: [email or web address] Plan Of Care PT-OP-B Current Condition Start: 06/22/24 17:39 Freq: Status: Active Protocol: Document 06/22/24 14:30 DCW (Rec: 06/22/24 17:51 DCW [id number]) Current Condition History of Current Condition Onset Date Three month history Current Complaints Right ankle edema/pain History of Current Condition Pt is a 73 year old male presenting three months s/p insidious onset of right ankle injury. Pt notes he woke up one day with significant pain, and swelling of his right ankle that was so back, he could not ideptify any structural landmarks in his foot. Significant limitations in ROM, heel pain with walking . Pt reports he went to the walk-in clinic, x-rays were unremarkable. Went home, tried RICE, slo reintroduction of his usual walking, and his ankle flared-up once again. Was seen by his PCP, obtained an MRI, which showed a longitudinal split tear of the peroneal brevis. Pt reports his physician told him that time and PT will help, but admits he would like to check with an orthopedic surgeon for a second opinion, but is making enough improvement that he doubts he will need any surgical intervention. Currently presenting with no edema, full ROM, and some mild pain along his plantar surface, but notes he has eliminated all his typical HEP activities for the past week. 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 Prior Treatments and Tests Right ankle MRI: IMPRESSION: 1. Launch split tear of the peroneal brevis. 2. Mild marrow contusion of the anterior process of the calcaneus, the plantar aspect of the talus head, in the proximal navicular. No acute fracture. 3. Diffuse subcutaneous edema of the ankle, extending to the dorsal foot. per Lorena Pool M.D. on 06/14/2024 PT-OP-T Assessment and Plan Start: 06/22/24 17:39 Freq: Status: Active Protocol: Document 06/22/24 14:30 DCW (Rec: 06/23/24 14:57 DCW [id number]) Physical Therapy Assessment Rehab Potential Rehabilitation Potential Excellent Evaluation Complexity Number of Personal Factors/Comorbidities 0 Number of Body Systems Impaired 1-2 Clinical Presentation at Evaluation Unstable Impairments Impairments Activity Tolerance,Pain Goals Two Impairment Pt unable to participate in trail-building due to ankle pain (12/27) Teacher Of The Visually Impaired Goal (LTG) Pt to report that he has been able to return to usual activities of hiking and trail building without pain. LTG Duration 08/22/24 One Impairment Pt does not have an approrpiate home exercise program Short Term Goal (STG) Pt to be independent and compliant with an appropriate HEP STG Duration 07/23/24 Assessment Summary Assessment Pt presents to skilled therapy three most after ankle pain began with minimal lingering symptoms. Edema and ROM have both returned to normal, and pt has been able to ambulate somewhat normally, although is still limited with increased pain walking on uneven surfaces or with over use. Will likely benefit from skilled therapeutic intervention focusing on decreasing inflammation, improving intrinsic foot strength, and gently returning to prior level of function. Physical Therapy Plan Frequency and Duration Frequency of Treatment every 1-2 weeks Plan of Care Start Date 06/22/24 Plan of Care End Date 08/22/24 Therapeutic Interventions Therapeutic Interventions Home Exercise Program,Joint Mobilizations,Manual Therapy, Neuromuscular Re-education, Patient/Caregiver Education, Self-Care/Home Management, Therapeutic Activities, Therapeutic Exercises Next Visit Focus/Plan Next Note Type Treatment Note Next Visit Plan Intrinsic foot strengthening, improvement in pain-free functional mobility Plan of Care Dates Plan of Care Start Date 06/22/24 Plan of Care End Date 08/22/24 Electronically Signed by: Alex Nayak, PT 06/23/24 [id number] If you are in agreement with this Plan of Care, please return a signed and dated copy. I have reviewed this Plan of Care and certify that the skilled therapy services above are required to meet the patient?s needs. Physician Signature Date Printed Name and Credentials Clinical Instructor Signature Printed Name and Credentials
--- NOTE | 2024-06-22 15:15 | PT.OIE ---
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 Shoulder pain Tinnitus (~2012) Past Surgical History (Last Reviewed 05/14/24 @ 15:01 by Radhames Dinero DO) H/O hernia repair (~1957) History of colonoscopy (~2012) History of surgery on arm (~09/18/15) History of tonsillectomy Visit Care Team Role Provider Type Radhames Dinero DO Family Provider Physician Primary Care Provider Specialty: [facility] Address: [address] [place] [address] Email: [email or web address] Attending Provider Advanced Remedial Project Manager Referring Provider Specialty: [facility] Address: [address] [place] [address], [address] Phone: Fax: Email: [email or web address] Physical Therapy Initial Evaluation PT-OP-A Visit Information Start: 06/22/24 17:39 Freq: Status: Active Protocol: Document 06/22/24 14:30 DCW (Rec: 06/22/24 17:51 DC [id number]) Out-Patient Physical Therapy Visit Information Visit Information Visit Type Initial Evaluation Visit Start Time 14:30 Visit Stop Time 15:15 Visit Number 1 Number of OFFICE AUTOMATION TECHNICIAN Visits 0 Evaluation Information Evaluation Date 06/22/24 PT-OP-B Current Condition Start: 06/22/24 17:39 Freq: Status: Active Protocol: Document 06/22/24 14:30 DCW (Rec: 06/22/24 17:51 DCW [id number]) Current Condition History of Current Condition Onset Date Three month history Current Complaints Right ankle edema/pain History of Current Condition Pt is a 73 year old male presenting three months s/p insidious onset of right ankle injury. Pt notes he woke up one day with significant pain, and swelling of his right ankle that was so back, he could not ideptify any structural landmarks in his foot. Significant limitations in ROM, heel pain with walking . Pt reports he went to the walk-in clinic, x-rays were unremarkable. Went home, tried RICE, slo reintroduction of his usual walking, and his ankle flared-up once again. Was seen by his PCP, obtained an MRI, which showed a longitudinal split tear of the peroneal brevis. Pt reports his physician told him that time and PT will help, but admits he would like to check with an orthopedic surgeon for a second opinion, but is making enough improvement that he doubts he will need any surgical intervention. Currently presenting with no edema, full ROM, and some mild pain along his plantar surface, but notes he has eliminated all his typical HEP activities for the past week. 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 Prior Treatments and Tests Right ankle MRI: IMPRESSION: 1. Launch split tear of the peroneal brevis. 2. Mild marrow contusion of the anterior process of the calcaneus, the plantar aspect of the talus head, in the proximal navicular. No acute fracture. 3. Diffuse subcutaneous edema of the ankle, extending to the dorsal foot. per Lorena Pool M.D. on 06/14/2024 PT-OP-C Subjective Start: 06/22/24 17:39 Freq: Status: Active Protocol: Document 06/22/24 14:30 DCW (Rec: 06/22/24 17:51 DCW [id number]) OP-PT Subjective Patient Comments Patient Comments When it started, I couldn't even spread my toes, everything was so swollen. Patient Questionnaires Foot & Ankle Ability Measure- ADL and Sports FAAM-ADL Score 67/84 = 79.76% FAAM-ADL Impairment 1 to 19% Impaired (Score 67-83 ) PT-OP-F Manual Assessment Start: 06/22/24 17:39 Freq: Status: Active Protocol: Document 06/22/24 14:30 DCW (Rec: 06/23/24 09:39 DCW [id number]) Manual Assessments Soft Tissue Assessment Soft Tissue Mobility Assessment Not noteable pain along plantar surface of foot, minimal discomfort with palpation along lateral malleolus PT-OP-J Posture/Palpation/Skin Start: 06/23/24 14:57 Freq: Status: Active Protocol: Document 06/22/24 14:30 DCW (Rec: 06/23/24 15:05 DCW [id number]) Skin Assessment Circumference Measurement 2 Location R figure-8 Measurement (Centimeters) 57.4 Comments L = 57.5 cm 1 Location R Mid-malleolus Measurement (Centimeters) 26.6 Comments L = 26.6 cm PT-OP-K Range of Motion Start: 06/22/24 17:39 Freq: Status: Active Protocol: Document 06/22/24 14:30 DCW (Rec: 06/22/24 17:52 DCW [id number]) Ankle and Foot Goniometric Range of Motion Ankle and Foot Right Active Ankle/Foot ROM WFL Yes Testing Position Sitting Dorsiflexion with Knee Flexed 15 Dorsiflexion with Knee Extended 10 Plantarflexion 50 Inversion 30 Eversion 5 Left Active Ankle/Foot ROM WFL Yes Testing Position Sitting Dorsiflexion with Knee Flexed 10 Dorsiflexion with Knee Extended 10 Plantarflexion 40 Inversion 30 Eversion 5 PT-OP-M Strength Start: 06/22/24 17:39 Freq: Status: Active Protocol: Document 06/22/24 14:30 DCW (Rec: 06/22/24 17:53 DCW [id number]) Ankle/Foot Strength Ankle and Foot Manual Muscle Testing Right Dorsiflexion (L4) 5 Normal Inversion 5 Normal Eversion (S1) 5 Normal Left Dorsiflexion (L4) 5 Normal Inversion 5 Normal Eversion (S1) 5 Normal PT-OP-Q Treatments Start: 06/22/24 17:39 Freq: Status: Active Protocol: Document 06/22/24 14:30 DCW (Rec: 06/22/24 17:51 DCW [id number]) Therapeutic Exercises Sitting Exercises Short Foot Sitting Exercise Name Short Foot Side right Towel Scrunch Sitting Exercise Name Towel Scrunch Side right Resistance 3# Lloyd pick-up Sitting Exercise Name Lloyd pick-up Side right PT-OP-T Assessment and Plan Start: 06/22/24 17:39 Freq: Status: Active Protocol: Document 06/22/24 14:30 DCW (Rec: 06/23/24 14:57 [facility] [id number]) Physical Therapy Assessment Rehab Potential Rehabilitation Potential Excellent Evaluation Complexity Number of Personal Factors/Comorbidities 0 Number of Body Systems Impaired 1-2 Clinical Presentation at Evaluation Unstable Impairments Impairments Activity Tolerance,Pain Goals Two Impairment Pt unable to participate in trail-building due to ankle pain (12/27) Kit Assembler Goal (LTG) Pt to report that he has been able to return to usual activities of hiking and trail building without pain. LTG Duration 08/22/24 One Impairment Pt does not have an approrpiate home exercise program Short Term Goal (STG) Pt to be independent and compliant with an appropriate HEP STG Duration 07/23/24 Assessment Summary Assessment Pt presents to skilled therapy three most after ankle pain began with minimal lingering symptoms. Edema and ROM have both returned to normal, and pt has been able to ambulate somewhat normally, although is still limited with increased pain walking on uneven surfaces or with over use. Will likely benefit from skilled therapeutic intervention focusing on decreasing inflammation, improving intrinsic foot strength, and gently returning to prior level of function. Physical Therapy Plan Frequency and Duration Frequency of Treatment every 1-2 weeks Plan of Care Start Date 06/22/24 Plan of Care End Date 08/22/24 Therapeutic Interventions Therapeutic Interventions Home Exercise Program,Joint Mobilizations,Manual Therapy, Neuromuscular Re-education, Patient/Caregiver Education, Self-Care/Home Management, Therapeutic Activities, Therapeutic Exercises Next Visit Focus/Plan Next Note Type Treatment Note Next Visit Plan Intrinsic foot strengthening, improvement in pain-free functional mobility
--- NOTE | 2024-07-26 16:36 | PT.OTN ---
Current Diagnoses Effusion, right ankle (07/26/24) Pain in right ankle and joints of right foot (07/26/24) Physical Therapy Treatment Note PT-OP-A Visit Information Start: 06/22/24 17:39 Freq: Status: Active Protocol: Document 07/26/24 16:00 DCW (Rec: 07/26/24 16:36 DCW [id number]) Out-Patient Physical Therapy Visit Information Visit Information Visit Type Treatment Note Visit Start Time 16:00 Visit Stop Time 16:30 Visit Number 2 Number of CHAIRMAN OF THE BOARD Visits 0 Evaluation Information Evaluation Date 06/22/24 PT-OP-B Current Condition Start: 06/22/24 17:39 Freq: Status: Active Protocol: Document 06/22/24 14:30 DCW (Rec: 06/22/24 17:51 DCW [id number]) Current Condition History of Current Condition Onset Date Three month history Current Complaints Right ankle edema/pain History of Current Condition Pt is a 73 year old male presenting three months s/p insidious onset of right ankle injury. Pt notes he woke up one day with significant pain, and swelling of his right ankle that was so back, he could not ideptify any structural landmarks in his foot. Significant limitations in ROM, heel pain with walking . Pt reports he went to the walk-in clinic, x-rays were unremarkable. Went home, tried RICE, slo reintroduction of his usual walking, and his ankle flared-up once again. Was seen by his PCP, obtained an MRI, which showed a longitudinal split tear of the peroneal brevis. Pt reports his physician told him that time and PT will help, but admits he would like to check with an orthopedic surgeon for a second opinion, but is making enough improvement that he doubts he will need any surgical intervention. Currently presenting with no edema, full ROM, and some mild pain along his plantar surface, but notes he has eliminated all his typical HEP activities for the past week. 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 Prior Treatments and Tests Right ankle MRI: IMPRESSION: 1. Launch split tear of the peroneal brevis. 2. Mild marrow contusion of the anterior process of the calcaneus, the plantar aspect of the talus head, in the proximal navicular. No acute fracture. 3. Diffuse subcutaneous edema of the ankle, extending to the dorsal foot. per Lorena Pool M.D. on 06/14/2024 PT-OP-C Subjective Start: 06/22/24 17:39 Freq: Status: Active Protocol: Document 07/26/24 16:00 DCW (Rec: 07/26/24 16:36 DCW [id number]) OP-PT Subjective Patient Comments Patient Comments Pt had been trying to increase walking, was going for a walk ~30 minutes every other day, but on Friday, went on a two hour hike, and it was not happy, pain lasted for a day, feeling better today. PT-OP-F Manual Assessment Start: 06/22/24 17:39 Freq: Status: Active Protocol: Document 06/22/24 14:30 DCW (Rec: 06/23/24 09:39 DCW [id number]) Manual Assessments Soft Tissue Assessment Soft Tissue Mobility Assessment Not noteable pain along plantar surface of foot, minimal discomfort with palpation along lateral malleolus PT-OP-J Posture/Palpation/Skin Start: 06/23/24 14:57 Freq: Status: Active Protocol: Document 06/22/24 14:30 DCW (Rec: 06/23/24 15:05 DCW [id number]) Skin Assessment Circumference Measurement 2 Location R figure-8 Measurement (Centimeters) 57.4 Comments L = 57.5 cm 1 Location R Mid-malleolus Measurement (Centimeters) 26.6 Comments L = 26.6 cm PT-OP-K Range of Motion Start: 06/22/24 17:39 Freq: Status: Active Protocol: Document 06/22/24 14:30 DCW (Rec: 06/22/24 17:52 DCW [id number]) Ankle and Foot Goniometric Range of Motion Ankle and Foot Right Active Ankle/Foot ROM WFL Yes Testing Position Sitting Dorsiflexion with Knee Flexed 15 Dorsiflexion with Knee Extended 10 Plantarflexion 50 Inversion 30 Eversion 5 Left Active Ankle/Foot ROM WFL Yes Testing Position Sitting Dorsiflexion with Knee Flexed 10 Dorsiflexion with Knee Extended 10 Plantarflexion 40 Inversion 30 Eversion 5 PT-OP-M Strength Start: 06/22/24 17:39 Freq: Status: Active Protocol: Document 06/22/24 14:30 DCW (Rec: 06/22/24 17:53 DCW [id number]) Ankle/Foot Strength Ankle and Foot Manual Muscle Testing Right Dorsiflexion (L4) 5 Normal Inversion 5 Normal Eversion (S1) 5 Normal Left Dorsiflexion (L4) 5 Normal Inversion 5 Normal Eversion (S1) 5 Normal PT-OP-Q Treatments Start: 06/22/24 17:39 Freq: Status: Active Protocol: Document 07/26/24 16:00 DCW (Rec: 07/26/24 16:36 DCW [id number]) Manual Therapy Treatment Consent Patient gave verbal consent for manual Yes treatment Soft Tissue Mobilization Calf Body Location R calf Mobilization Type Sustained Pressure,Trigger Point Release Body Position Sitting Other Other Manual Treatments Ankle mobility, PROM, manual stretch/flexibility PT-OP-T Assessment and Plan Start: 06/22/24 17:39 Freq: Status: Active Protocol: Document 07/26/24 16:00 DCW (Rec: 07/26/24 16:36 DCW [id number]) Physical Therapy Assessment Impairments Impairments Activity Tolerance,Pain Goals Two Impairment Pt unable to participate in trail-building due to ankle pain (12/27) Group Home Goal (LTG) Pt to report that he has been able to return to usual activities of hiking and trail building without pain. LTG Duration 08/22/24 One Impairment Pt does not have an approrpiate home exercise program Short Term Goal (STG) Pt to be independent and compliant with an appropriate HEP STG Duration 07/23/24 Assessment Summary Assessment Pt progressing well overall, no ongoing complaints or concerns. Did experience slight discomfort with recent increase in hiking distance, but didn't last too long. Pt agreeable to continue to slowly increased tolerance to activity. Pt did exhibit bilateral edema in his feet, notes it is a relatively new symptom, unsure when it began. Pt instructed to keep eye on it, contact PCP with worsening symptoms. Pt requested cancellation of majority of remaining visits, keeping one in 10 days just in case. Physical Therapy Plan Frequency and Duration Frequency of Treatment every 1-2 weeks Plan of Care Start Date 06/22/24 Plan of Care End Date 08/22/24 Therapeutic Interventions Therapeutic Interventions Home Exercise Program,Joint Mobilizations,Manual Therapy, Neuromuscular Re-education, Patient/Caregiver Education, Self-Care/Home Management, Therapeutic Activities, Therapeutic Exercises Next Visit Focus/Plan Next Note Type Treatment Note Next Visit Plan Intrinsic foot strengthening, improvement in pain-free functional mobility
--- NOTE | 2024-08-05 10:51 | PT.OTN ---
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 Pt notes he woke up one day with significant pain, and swelling of his right ankle that was so back, he could not ideptify any structural landmarks in his foot. Significant limitations in ROM, heel pain with walking . Pt reports he went to the walk-in clinic, x-rays were unremarkable. Went home, tried RICE, slo reintroduction of his usual walking, and his ankle flared-up once again. Was seen by his PCP, obtained an MRI, which showed a longitudinal split tear of the peroneal brevis. Pt reports his physician told him that time and PT will help, but admits he would like to check with an orthopedic surgeon for a second opinion, but is making enough improvement that he doubts he will need any surgical intervention. Currently presenting with no edema, full ROM, and some mild pain along his plantar surface, but notes he has eliminated all his typical HEP activities for the past week. 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 Prior Treatments and Tests Right ankle MRI: IMPRESSION: 1. Launch split tear of the peroneal brevis. 2. Mild marrow contusion of the anterior process of the calcaneus, the plantar aspect of the talus head, in the proximal navicular. No acute fracture. 3. Diffuse subcutaneous edema of the ankle, extending to the dorsal foot. per Lorena Pool M.D. on 06/14/2024 PT-OP-C Subjective Start: 06/22/24 17:39 Freq: Status: Active Protocol: Document 08/05/24 10:30 DCW (Rec: 08/05/24 10:50 DCW [id number]) OP-PT Subjective Patient Comments Patient Comments Walked longer on back to back days this week, alittle sore today, but nothing bad. Did have some increased soreness in his foot this morning, but went away PT-OP-F Manual Assessment Start: 06/22/24 17:39 Freq: Status: Active Protocol: Document 06/22/24 14:30 DCW (Rec: 06/23/24 09:39 DCW [id number]) Manual Assessments Soft Tissue Assessment Soft Tissue Mobility Assessment Not noteable pain along plantar surface of foot, minimal discomfort with palpation along lateral malleolus PT-OP-J Posture/Palpation/Skin Start: 06/23/24 14:57 Freq: Status: Active Protocol: Document 06/22/24 14:30 DCW (Rec: 06/23/24 15:05 DCW [id number]) Skin Assessment Circumference Measurement 2 Location R figure-8 Measurement (Centimeters) 57.4 Comments L = 57.5 cm 1 Location R Mid-malleolus Measurement (Centimeters) 26.6 Comments L = 26.6 cm PT-OP-K Range of Motion Start: 06/22/24 17:39 Freq: Status: Active Protocol: Document 06/22/24 14:30 DCW (Rec: 06/22/24 17:52 DCW [id number]) Ankle and Foot Goniometric Range of Motion Ankle and Foot Right Active Ankle/Foot ROM WFL Yes Testing Position Sitting Dorsiflexion with Knee Flexed 15 Dorsiflexion with Knee Extended 10 Plantarflexion 50 Inversion 30 Eversion 5 Left Active Ankle/Foot ROM WFL Yes Testing Position Sitting Dorsiflexion with Knee Flexed 10 Dorsiflexion with Knee Extended 10 Plantarflexion 40 Inversion 30 Eversion 5 PT-OP-M Strength Start: 06/22/24 17:39 Freq: Status: Active Protocol: Document 06/22/24 14:30 DCW (Rec: 06/22/24 17:53 DCW [id number]) Ankle/Foot Strength Ankle and Foot Manual Muscle Testing Right Dorsiflexion (L4) 5 Normal Inversion 5 Normal Eversion (S1) 5 Normal Left Dorsiflexion (L4) 5 Normal Inversion 5 Normal Eversion (S1) 5 Normal PT-OP-Q Treatments Start: 06/22/24 17:39 Freq: Status: Active Protocol: Document 08/05/24 10:30 DCW (Rec: 08/05/24 10:50 DCW [id number]) Manual Therapy Treatment Soft Tissue Mobilization Calf Body Location R calf Mobilization Type Sustained Pressure,Trigger Point Release Body Position Sitting PT-OP-T Assessment and Plan Start: 06/22/24 17:39 Freq: Status: Active Protocol: Document 08/05/24 10:30 DCW (Rec: 08/05/24 10:50 DCW [id number]) Physical Therapy Assessment Impairments Impairments Activity Tolerance,Pain Goals Two Impairment Pt unable to participate in trail-building due to ankle pain (12/27) 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 LTG Duration Met One Impairment Pt does not have an approrpiate home exercise program Short Term Goal (STG) Pt to be independent and compliant with an appropriate HEP STG Duration Met Assessment Summary Assessment Pt feeling good overall, no longer exhibiting any lingering complaints. Pt has minimal lingering occasional soreness, but otherwise has returned to walking every other day, plans to slowly increase distance and frequency in the future. Appropriate for discharge at this time. Physical Therapy Plan Frequency and Duration Frequency of Treatment every 1-2 weeks Plan of Care Start Date 06/22/24 Plan of Care End Date 08/22/24 Therapeutic Interventions Therapeutic Interventions Home Exercise Program,Joint Mobilizations,Manual Therapy, Neuromuscular Re-education, Patient/Caregiver Education, Self-Care/Home Management, Therapeutic Activities, Therapeutic Exercises Next Visit Focus/Plan Next Note Type Treatment Note Next Visit Plan Intrinsic foot strengthening, improvement in pain-free functional mobility
== END 2024-08-10 12:56 | disposition home or self-care (01) ==
LOC: PHYS 10:30
PROVIDERS: Family Provider Family Medicine; PCP Family Medicine; Referring Provider Nurse Practitioner Family; Visit Provider Nurse Practitioner Family
DX: M25.471 Effusion, right ankle (principal); M25.571 Pain in right ankle and joints of right foot
CPT/HCPCS: 97110; 97140; 97161

== ENCOUNTER 2025-01-05 12:05 | Emergency (ER) | payer MEDICARE, OTHER, SELFPAY ==
[2025-01-05] VITALS (10 sets, daily range): BP systolic 117–170; BP diastolic 80–90; PULSE 62–76; RESP 14–22; TEMP 36.8; O2SAT 94–99; BMI 27.1
[2025-01-05] MEDS: ONDANSETRON 4 MG/2 ML INJ IV (12:27)
[2025-01-05] MEDS: PANTOPRAZOLE 40 MG VIAL 80 MG IV (12:27)
--- NOTE | 2025-01-05 12:30 | EKG_ITS ---
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
[2025-01-05 12:40] LABS: Add Manual Diff / Slide Review NO; Basophils Absolute Auto 0 /uL (0-100); Basophils Percent Auto 0.2 % (0-2); Eosinophils Absolute Auto 0 /uL (0-450); Hemoglobin 14.3 g/dL (13.5-17.5); Lymphocytes Absolute Auto 300 /uL (1100-4500); Mean Corpuscular HGB Conc 34.2 % (30-36); Mean Corpuscular Hemoglobin 31.2 PG (26-34); Mean Corpuscular Volume 91.3 fL (80-100); Monocytes Absolute Auto 800 /uL (0-900); Monocytes Percent Auto 7.8 % (3-14); Neutrophils Absolute Auto 9300 /uL (1500-7000); Platelet Count 282 X10^3/uL (150-400); Red Cell Distribution Width 13.6 % (11.6-14.8); White Blood Cell Count 10.5 X10^3/uL (4.5-11.0)
[2025-01-05 12:47] LABS: Prothrombin Time 11.7 SECONDS (9.4-12.5)
[2025-01-05 12:50] LABS: Alanine Aminotransferase 43 IU/L (<50); Albumin 4.5 g/dL (3.5-5.0); Albumin Globulin Ratio 1.3 (1.0-2.8); Alkaline Phosphatase 63 U/L (38-126); Aspartate Aminotransferase 46 IU/L (17-59); BUN Creatinine Ratio 22.4 (6-22); Bilirubin Total 0.3 mg/dL (0.2-1.3); Blood Urea Nitrogen 26 mg/dL (9-20); Calcium 8.7 mg/dL (8.4-10.2); Carbon Dioxide 27 mmol/L (22-32); Chloride 101 mmol/L (98-107); Estimated Glomerular Filt Rate > 60 mL/min (>60); Globulin 3.6 g/dL (1.7-4.1); Glucose 123 mg/dL (80-110); HEMOLYSIS < 15 (0-50); PTT Partial Thromboplastin Tim 29 SECONDS (25.1-36.5); Potassium 4.4 mmol/L (3.4-5.1); Sodium 139 mmol/L (137-145); Total Protein 8.1 g/dL (6.3-8.2)
--- NOTE | 2025-01-05 17:15 | ED_ITS ---
HPI - GI Bleed General Chief complaint: GI Bleed Stated complaint: nausea vomitting Time Seen by Provider: 01/05/25 16:45 Mode of arrival: Ambulatory History of Present Illness HPI Narrative: Patient here with for complaints of nausea vomiting sweating dark emesis. Patient in the past week has had upset stomach. He states he has had stomach problems for over a year but does not taken any antacids for it. For the past week he has had abdominal discomfort with eating. Had sweats last night. Had dark emesis this morning. Went to walk-in clinic and was sent here for further workup. Prior history of colonoscopy many years ago but no history EGD. Patient takes baby aspirin daily. Has not been consuming ibuprofen recently. No dizziness no dyspnea no syncope. Related Data Home Medications Medication Instructions Recorded Confirmed cholecalciferol (vitamin D3) 25 1,000 unit PO DAILY 06/05/18 01/07/25 mcg (1,000 unit) capsule (Vitamin D3) yyjbovnpeuqz-hwnusuqp-rcqmal 1 tab PO DAILY 06/05/18 01/07/25 tablet (Multivitamin 50 Plus tablet) vit C 250 mg-vit E 90 mg-zinc 40 1 tab PO BID 06/11/18 01/07/25 mg-copper 1 pg-iqabwz-kmhgid capsule (PreserVision AREDS-2) aspirin 81 mg tablet,delayed 81 mg PO DAILY 06/18/18 01/07/25 release (Aspir-) ashwagandha extract PO 01/15/24 01/07/25 coenzyme Q10 [Ultra CoQ10] PO 01/15/24 01/07/25 magnesium chloride PO 01/15/24 01/07/25 omega-3 fatty acids [Fish Oil] PO 01/15/24 01/07/25 vitamin K2 PO 01/15/24 01/07/25 Saccharomyces boulardii 10 billion 10,000 mmu cells PO DAILY 05/14/24 01/07/25 cell capsule Parasitic GI infection Previous Rx's Medication Instructions Recorded ondansetron 4 mg disintegrating 4 mg PO Q8H PRN nausea and 01/05/25 tablet vomiting #20 tabs pantoprazole 40 mg tablet,delayed 40 mg PO DAILY #30 tabs 01/05/25 release (Protonix) sucralfate 1 gram tablet (Carafate) 1 g PO 4XD #28 tabs 01/05/25 Allergies Allergy/AdvReac Type Severity Reaction Status Date / Time No Known Drug Allergies Allergy Verified 01/07/25 14:27 Review of Systems Review of Systems Narrative: GENERAL: Positive chills, fatigue, malaise, fever, sweats. HEENT: Negative sinus pain, ear pain, sore throat RESPIRATORY: Negative dyspnea, cough CARDIOVASCULAR: Negative chest pain, palpitations GASTROINTESTINAL: Positive nausea, vomiting, abdominal pain, positive hematemesis, negative bloody stools : Negative dysuria, frequency, hematuria MUSCULOSKELETAL: Negative muscle or bony pain SKIN: Negative rash, skin lesions NEUROLOGIC: Negative weakness, numbness ROS Unobtainable: All systems reviewed & are unremarkable except as noted in HPI and below Patient History Medical History Medicare annual wellness visit, subsequent Anemia Hyperlipemia Encounter for well adult exam without abnormal findings Lumbar strain Actinic keratosis Elevated liver function tests Hearing deficit History of migraine headaches History of headache Environmental allergies Arthritis of both knees Shoulder pain Fractures Back pain, chronic Ankle pain, right 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 EYES: Pupils equal round, pink conjunctiva ENT: Mucous membranes moist. NECK: Trachea midline. CARDIOVASCULAR: Regular rate and rhythm RESPIRATORY: Clear to auscultation. Breath sounds equal bilaterally. No wheezes, rales, or rhonchi. GASTROINTESTINAL: Abdomen soft, non-tender, no peritoneal signs bowel sounds are present no guarding no rebound NEURO: AOx4. Clear speech SKIN: Warm and dry PSYCH: Not anxious, is cooperative Initial Vital Signs Initial Vital Signs: Vital Signs Temperature 98.2 F 01/05/25 12:14 Pulse Rate 76 01/05/25 12:14 Respiratory Rate 14 01/05/25 12:14 Blood Pressure 136/87 01/05/25 12:14 Pulse Oximetry 99 01/05/25 12:14 Oxygen Delivery Method Room Air 01/05/25 12:14 Course Orders Ordered: Discontinued Medications Ondansetron HCl (Ondansetron 4 Mg/2 Ml Inj) 4 mg IV NOW PRN PRN Reason: Nausea And Vomiting Last Admin: 01/05/25 12:27 Dose: 4 mg Documented By: LOUISA Ondansetron HCl (Ondansetron 4 Mg Odt) 4 mg SL NOW PRN PRN Reason: Nausea And Vomiting Pantoprazole Sodium (Pantoprazole 40 Mg Vial) 80 mg IV NOW ONE Stop: 01/05/25 12:20 Last Admin: 01/05/25 12:27 Dose: 80 mg Documented By: LOUISA Vital Signs Vital signs: Vital Signs - 8 hr 01/05/25 12:14 01/05/25 14:09 01/05/25 15:39 Temperature 98.2 F 98.3 F Pulse Rate 76 68 66 Respiratory Rate 14 18 Blood Pressure 136/87 117/80 Pulse Oximetry 99 96 99 Oxygen Delivery Method Room Air Room Air 01/05/25 15:39 01/05/25 16:00 01/05/25 16:00 Temperature Pulse Rate 62 Respiratory Rate 14 Blood Pressure 166/88 H 145/80 H Pulse Oximetry 97 Oxygen Delivery Method 01/05/25 16:30 01/05/25 16:30 Temperature Pulse Rate 66 Respiratory Rate 19 Blood Pressure 156/85 H Pulse Oximetry 96 Oxygen Delivery Method MDM - GI Bleed Lab Data 01/05/25 12:25 01/05/25 12:25 Labs: Lab Results 01/05/25 01/05/25 Range/Units 12:25 18:13 WBC 10.5 (4.5-11.0) X10^3/uL RBC 4.60 (4.5-5.9) X10^6/uL Hgb 14.3 (13.5-17.5) g/dL Hct 42.0 (41-53) % MCV 91.3 (80-100) fL MCH 31.2 (26-34) PG MCHC 34.2 (30-36) % RDW 13.6 (11.6-14.8) % Plt Count 282 (150-400) X10^3/uL Neut % (Auto) 89.0 H (50-75) % Lymph % (Auto) 3.0 L (25-40) % [place] % (Auto) 7.8 (3-14) % Eos % (Auto) 0.0 L (2-4) % Baso % (Auto) 0.2 (0-2) % Neut # (Auto) 9300 H (0300-9729) /uL Lymph # (Auto) 300 L (6154-1491) /uL [place] # (Auto) 800 (0-900) /uL Eos # (Auto) 0 (0-450) /uL Baso # (Auto) 0 (0-100) /uL PT 11.7 (9.4-12.5) SECONDS INR 1.0 (0.9-1.3) APTT 29 (25.1-36.5) SECONDS Sodium 139 (137-145) mmol/L Potassium 4.4 (3.4-5.1) mmol/L Chloride 101 (98-107) mmol/L Carbon Dioxide 27 (22-32) mmol/L BUN 26 H (9-20) mg/dL Creatinine 1.16 (0.66-1.25) mg/dL Estimated GFR > 60 (>60) mL/min BUN/Creatinine Ratio 22.4 H (6-22) Glucose 123 H (80-110) mg/dL Calcium 8.7 (8.4-10.2) mg/dL Total Bilirubin 0.3 (0.2-1.3) mg/dL AST 46 (17-59) IU/L ALT 43 (<50) IU/L Alkaline Phosphatase 63 (38-126) U/L Total Protein 8.1 (6.3-8.2) g/dL Albumin 4.5 (3.5-5.0) g/dL Globulin 3.6 (1.7-4.1) g/dL Albumin/Globulin Ratio 1.3 (1.0-2.8) SARS-CoV-2 (PCR) Negative (Negative) Influenza A (RT-PCR) Flu a negative (NEGATIVE) Influenza B (RT-PCR) Flu b negative (NEGATIVE) RSV (PCR) Negative (Negative) Blood Type A Positive Antibody Screen Negative [facility] Narrative Medical decision making narrative: Patient here with for complaints of nausea vomiting sweating dark emesis. Patient in the past week has had upset stomach. He states he has had stomach problems for over a year but does not taken any antacids for it. For the past week he has had abdominal discomfort with eating. Had sweats last night. Had dark emesis this morning. Went to walk-in clinic and was sent here for further workup. Prior history of colonoscopy many years ago but no history EGD. Patient takes baby aspirin daily. Has not been consuming ibuprofen recently. No dizziness no dyspnea no syncope. After history and exam CBC CMP PT INR PTT type and screen EKG Protonix respiratory panel, no CT imaging indicated this time. Symptoms started with viral syndrome. [facility] Medical records reviewed: No recent visit for this complaint Differential considered: Includes but not limited to upper GI bleed gastritis viral gastritis cholelithiasis pancreatitis Dolores-Landin tear Lab Test results independently reviewed as above. Pertinent findings: WBC 10.5 hemoglobin 14.3 INR 1.0 sodium 139 potassium 4.4 BUN 26 creatinine 1.16 GFR greater than 60 glucose 123 AST 46 ALT 43 Independently reviewed EKG normal sinus rhythm rate [address] elevation or depression Consultations: None indicated this time Treatments: Protonix Zofran Re-evaluations: 6:40 p.m.. Patient in no distress. Reviewed results with patient. Agrees with treatment plan. Outpatient EGD no fried fatty history food spicy foods carbonated drinks. Referral for General surgery provided. Prescriptions provided for patient. Return precautions reviewed. Patient and desire discharge home. 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 Return precautions reviewed with patient. No hypotension or tachycardia. No hematemesis during course of stay. Prescriptions provided. Patient feeling better. They desire discharge home. Clinically not cardiac in origin. No chest pain. Discomfort is worse with eating.. Diaphoresis can occur with gastric discomfort. Appropriate for outpatient workup including but not limited to EGD and colonoscopy. Diagnosis: Gastritis Discharge Plan Departure Patient Disposition: Home Clinical Impression: Gastritis Qualifiers: Gastritis type: unspecified gastritis Chronicity: unspecified Gastritis bleeding: presence of bleeding unspecified Qualified Code(s): K29.70 - Gastritis, unspecified, without bleeding Instructions: DI for Peptic Ulcer, Gastrointestinal Bleeding Activity Restrictions/Additional Instructions: Your exam is reassuring at this time. Your blood work is reassuring. It is possible he likely had a viral infection causing her nausea and vomiting that worsened possible stomach ulcer causing blood in the emesis/vomit. Please call provided general surgery office tomorrow to schedule endoscopy of your stomach. No fried fatty greasy foods spicy foods or carbonated drinks. Prescription medication has been sent to your pharmacy to continue to help for your stomach discomfort. Return if worse if any questions or concerns. Prescriptions: New sucralfate [Carafate] 1 gram tablet 1 g PO 4XD Qty: 28 0RF pantoprazole [Protonix] 40 mg tablet,delayed release (DR/EC) 40 mg PO DAILY Qty: 30 0RF ondansetron 4 mg tablet,disintegrating 4 mg PO Q8H PRN (Reason: nausea and vomiting) Qty: 20 0RF No Action magnesium chloride PO vitamin K2 PO omega-3 fatty acids [Fish Oil] PO coenzyme Q10 [Ultra CoQ10] PO ashwagandha extract PO Saccharomyces boulardii 10 billion cell capsule 10,000 mmu cells PO DAILY Patient Comments: Only 1 capsule per day = 5,000 billion CFU. cholecalciferol (vitamin D3) [Vitamin D3] 1,000 unit Capsule 1,000 unit PO DAILY Patient Comments: In the PM fgputgqxaauk-tjkhlwni-ocxuye [Multivitamin 50 Plus] Tablet 1 tab PO DAILY vit C,L-Dx-mmrmw-lutein-zeaxan [PreserVision AREDS-2] [id number] pe-qqyd-nl-mg Capsule 1 tab PO BID aspirin [Aspir-81] 81 mg Tablet,Delayed Release (Dr/Ec) 81 mg PO DAILY Referrals: Julio Armstrong MD [Physician] - Radhames Dinero DO [Primary Care Provider] - Stand Alone Forms: Patient Portal/API/Survey
[2025-01-05 19:00] LABS: Influenza A - CEPHEID Flu A NEGATIVE (NEGATIVE); Influenza B - CEPHEID Flu B NEGATIVE (NEGATIVE); Respiratory Syncytial Virus Negative (Negative)
[2025-01-05 19:01] LABS: COVID-19 CEPHEID 4-PLEX PCR Negative (Negative)
== END 2025-01-05 18:56 | disposition home or self-care (01) ==
PROVIDERS: Emergency Provider Emergency Medicine; Family Provider Family Medicine; PCP Family Medicine
DX: K29.70 Gastritis, unspecified, without bleeding (principal)
CPT/HCPCS: 0241U; 36415; 80053; 85025; 85610; 85730; 86850; 86900; 86901; 93005; 93010; 96374; 96375; 99284; J2405; J2470

== ENCOUNTER → 2025-01-15 15:39 | Outpatient (CLI) | payer MEDICARE, OTHER, SELFPAY ==
--- NOTE | 2025-01-15 | DI.MRI.S_ITS ---
PROCEDURE: MR ANKLE RT WO CON INDICATIONS: RE-ASSESS TORN PERONEAL TENDON TECHNIQUE: Noncontrast sagittal T1 spin echo and T2 fast spin echo with fat saturation, axial proton density fast spin echo and T2 fast spin echo with fat saturation, coronal T1 spin echo and T2 fast spin echo with fat saturation through the ankle/hindfoot. COMPARISON: [facility], CR, XR ANKLE RT MIN 3V, 05/10/2024, 10:51. [facility], CR, XR FOOT RT MIN 3V, 05/10/2024, 10:51. [facility], MR, MR ANKLE RT WO CON, 06/11/2024, 18:52. FINDINGS: Image quality: Excellent. Bones: A small ganglion cyst is present along the insertion of the Achilles tendon at the posterior-superior calcaneal tuberosity (04/30). The anterior process of the calcaneus and lateral process of the talus are intact. No talar dome osteochondral defect is seen. Joints: There is no significant joint effusion. 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 Sinus tarsi: The sinus tarsi signal is normal. Syndesmotic ligaments: The anterior and posterior inferior syndesmotic ligaments are normal. Lateral collateral ligament: There is low signal thickening of the anterior talofibular, posterior talofibular, and calcaneofibular ligaments. Deltoid ligament: The visualized components of the deltoid ligament, that being the posterior tibiotalar and tibiospring ligaments, are normal. Calcaneonavicular spring ligament: The superomedial component of the calcaneonavicular spring ligament is grossly intact. Tendons: There is a chronic split tear of the peroneus brevis at the retro malleolar groove with distal reconstitution (03/04-36). Compared to 06/11/2024, there has been mild decrease in subcutaneous edema. The Achilles tendon is normal. The extensor, flexor and peroneal tendons are otherwise normal. The peroneal tendons are appropriately situated within the retromalleolar groove, and the superficial peroneal retinaculum is intact. Plantar aponeurosis: There is no abnormal thickening of, abnormal intrasubstance signal involving, or perifascial edema about the plantar aponeurosis. Plantar musculature: There are no findings of denervation involving the plantar muscles of the foot. Nerves: The visualized nerves are unremarkable. Other: There is a flat contour of the retro malleolar groove (3/18). Mild subcutaneous edema is present around the lateral aspect of the peroneal groove (4/29). Mild diffuse atrophy of the lower calf musculature is present. IMPRESSION: 1. 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 2. Chronic sprains of the lateral collateral ligament complex. 3. Mild talonavicular osteoarthritis. Dictated by: Karson Chan M.D. on 01/17/2025 at 12:48 Approved by: Karson Chan M.D. on 01/17/2025 at 12:59
== END ==
PROVIDERS: Family Provider Family Medicine; PCP Family Medicine; Referring Provider Family Medicine; Visit Provider Family Medicine
DX: S96.811A Strain of other specified muscles and tendons at ankle and foot level, right foot, initial encounter (principal); M19.071 Primary osteoarthritis, right ankle and foot; S93.491A Sprain of other ligament of right ankle, initial encounter; M67.471 Ganglion, right ankle and foot; M25.571 Pain in right ankle and joints of right foot
CPT/HCPCS: 73721

== ENCOUNTER 2025-03-03 13:04 | Day surgery (SDC) | payer MEDICARE, OTHER, SELFPAY ==
--- NOTE | 2025-03-03 | PATH_ITS ---
[facility] Accession Number: [id number] No. of containers..03 Tissue . 01 Material submitted: . PART A: duodenum - DUODENUM PART B: gastrointestinal site - ANTRUM PART C: esophagus, E-G Junction - GE JUNCTION . 01 Clinical history: . 03/09/2025 NOTIFIED SUMAN (OR) REGARDING NO TISSUE IN VIAL 'A' - ARIELG . 01 Diagnosis: Part A: DUODENUM: No tissue present in sample jar. . Part B: ANTRUM: Helicobacter pylori gastritis, with focal intestinal metaplasia. No dysplasia or malignancy identified. . Part C: GE JUNCTION: Gastroesophageal junction mucosa with focal erosion, suggestive of reflux. No goblet cell metaplasia, dysplasia, or malignancy identified. [facility] 03/09/2025 1540 Local . 01 Electronically signed: . Bryce Mcdonnell MD, Pathologist NPI- [id number] . 01 Gross description: . Part A: DUODENUM: Received is a jar containing formalin. No tissue is identified. . Part B: ANTRUM: Received in formalin are 2 fragment(s) of nunn, soft tissue measuring 0.2 x 0.2 x 0.2 cm to 0.3 x 0.2 x 0.2 cm submitted entirely in 1 cassette(s) . Part C: GE JUNCTION: Received in formalin are 3 fragment(s) of nunn, soft tissue measuring 0.1 x 0.1 x 0.1 cm to 0.3 x 0.2 x 0.2 cm submitted entirely in 1 cassette(s) /MEG 03/09/2025 1540 Local . 01 Microscopic: . Part B: ANTRUM: An immunohistochemical stain was performed, revealing the presence of Helicobacter organisms. The control stains appropriately. * This test was developed and the performance characteristics were validated by [employer]. It has not been cleared or approved by the Food and Drug Administration. . Part C: GE JUNCTION: An ABPAS stain was performed to evaluate for fungal organisms and is negative. The control stains appropriately. . 01 Pathologist provided ICD-10: B96.81, K21.00 . 01 CPT . 555257, 378009, 612162, 687318, [id number] Specimen Comment: A courtesy copy of this report has been sent to [phone] Performed at: [address] [facility] [id number] MD Bryce Mcdonnell MD Phone: [phone]
[2025-03-03 13:46] VITALS: BP 157/81; PULSE 56; RESP 18; TEMP 36.3; O2SAT 98
[2025-03-03] MEDS: LACTATED RINGERS 1,000 ML 42 ML IV (13:49)
--- NOTE | 2025-03-03 14:13 | P.HP_ITS ---
History of Present Illness History of Present Illness Date Patient Seen: 03/03/25 Time Patient Seen: 14:13 Chief complaint: EGD w/poss bx Narrative: Isacc is here for his EGD for hematemesis. He has not had any further episodes of hematemesis since I saw him in December. 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 Tinnitus (~2012) Bhumika's disease Surgical History History of tonsillectomy H/O hernia repair (~1957) History of colonoscopy (~2012) History of surgery on arm (~09/18/15) Social History (Updated 01/28/25 @ 16:00 by Vy Sam MA) marital status: household members: spouse lives independently: Yes pets and animals: No occupational status: previously employed special soledad needs: No travel history: over 6 months ago leisure activities: exercise, music, reading and volunteer work seatbelt use: always water heater temp set < 120 deg: Yes working smoke detector in home: Yes fire extinguisher in home: Yes carbon monox detector in home: No firearms in home: Yes firearms unloaded and locked: Yes do you feel safe at home: Yes Smoking Status: Never smoker alcohol intake: current substance use type: does not use during the past year weight has: remained stable well-balanced diet: daily or most days daily servings fruits/ve-4 caffeine: Yes eating out: 1-3 times/week Type(s) of exercise: walking, aerobic, regular exercise, resistance training and yoga frequency: 3-4 times per week duration: 45-60 minutes/day Meds Home Medications and Allergies Home Medications Medication Instructions Recorded Confirmed Type cholecalciferol (vitamin D3) 25 1,000 unit PO DAILY 06/05/18 01/28/25 History mcg (1,000 unit) capsule (Vitamin D3) [id number] 1 tab PO DAILY 06/05/18 01/28/25 History tablet (Multivitamin 50 Plus tablet) vit C 250 mg-vit E 90 mg-zinc 40 1 tab PO BID 06/11/18 01/28/25 History mg-copper 1 mh-qqktdg-esremc capsule (PreserVision AREDS-2) aspirin 81 mg tablet,delayed 81 mg PO DAILY 06/18/18 01/28/25 History release (Aspir-) ashwagandha extract PO 01/15/24 01/28/25 History coenzyme Q10 [Ultra CoQ10] PO 01/15/24 01/28/25 History magnesium chloride PO 01/15/24 01/28/25 History omega-3 fatty acids [Fish Oil] PO 01/15/24 01/28/25 History vitamin K2 PO 01/15/24 01/28/25 History Saccharomyces boulardii 10 billion 10,000 mmu cells PO DAILY 05/14/24 01/28/25 History cell capsule Parasitic GI infection ondansetron 4 mg disintegrating 4 mg PO Q8H PRN nausea and 01/05/25 01/28/25 Rx tablet vomiting #20 tabs pantoprazole 40 mg tablet,delayed 40 mg PO DAILY #30 tabs 01/05/25 01/28/25 Rx release (Protonix) sucralfate 1 gram tablet (Carafate) 1 g PO BID #28 tabs 01/12/25 01/28/25 Rx Kefir probiotic PO 01/28/25 History Allergies Allergy/AdvReac Type Severity Reaction Status Date / Time No Known Drug Allergies Allergy Verified 01/28/25 16:06 Exam Vital Signs (past 8 hours): - 03/03/25 13:46 Temperature 97.4 F L Pulse Rate 56 L Respiratory Rate 18 Blood Pressure 157/81 H Pulse Oximetry 98 Oxygen Delivery Method Room Air Oxygen Delivery Method Room Air Const General: No acute distress Assessment & Plan Assessment and plan (1) GERD (gastroesophageal reflux disease): Qualifiers: Esophagitis presence: without esophagitis Qualified Code(s): K21.9 - Gastro-esophageal reflux disease without esophagitis Status: Acute Plan Esophagogastroduodenoscopy Time-Based Coding :: [TOTAL MINUTES] spent with patient and on the chart (including review of chart, obtaining history, exam, reviewing outside data, placing orders, documenting exam and treatment plan, and counseling patient) on [DATE]. PROFEE Corrections Counselor Document charge(s): No
--- NOTE | 2025-03-03 14:41 | PM.OP.EGD ---
Operative Date/Time/Diagnoses Date of procedure: 03/03/25 Time of procedure: 14:41 Pre-op diagnosis: Hematemesis Post-op diagnosis: same Procedure & Clinicians Study performed: Esophagogastroduodenoscopy Same procedure as scheduled: Yes Surgeon: Julio Armstrong Procedure Notes Procedure in detail: Surgeon: Julio Armstrong MD Anesthesia: Destiney Miner CRNA A timeout was performed. A bite blocked was placed. The patient was positioned in the left lateral decubitus position. Anesthesia was administered. The endoscope was inserted through the bite block and passed through the esophagus and stomach and into the duodenum. The proximal duodenal mucosa appeared mildly inflamed. Random biopsies were taken from the duodenal with cold forceps. The scope was withdrawn into the stomach. There was some mild antritis and random biopsies were taken from the antral mucosa with cold forceps. The rest of the stomach was normal. The scope was retroflexed and no gross hiatal hernia was noted. The scope was withdrawn into the esophagus and there was some mild inflammation at the GE junction and biopsies were taken from the GE junction with the cold forceps. The remainder of the esophagus was normal. The scope was withdrawn. The patient was awakened and brought to recovery. Sedation time: 8 minutes Findings: Mild proximal duodenitis, antritis and distal esophagitis Post-procedure Disposition: PACU
[2025-03-03 14:43] VITALS: BP 117/73; PULSE 56; RESP 14; TEMP 36.1; O2SAT 97
[2025-03-03 14:47] VITALS: BP 140/80; PULSE 59; RESP 14; O2SAT 97
[2025-03-03 14:52] VITALS: BP 131/81; PULSE 56; RESP 16; O2SAT 97
== END 2025-03-03 15:10 | disposition home or self-care (01) ==
PROVIDERS: Family Provider Family Medicine; PCP Family Medicine; Referring Provider Surgery; Visit Provider Surgery
PROC: 0DJ08ZZ Inspection of Upper Intestinal Tract, Via Natural or Artificial Opening Endoscopic (ICD-10-PCS; CPT 43239; principal; 2025-03-03 14:15)
DX: K29.60 Other gastritis without bleeding (principal); B96.81 Helicobacter pylori [H. pylori] as the cause of diseases classified elsewhere
CPT/HCPCS: 43239; J2704

== ENCOUNTER 2025-06-16 12:41 | Day surgery (SDC) | payer MEDICARE, OTHER, SELFPAY ==
--- NOTE | 2025-06-16 | PATH_ITS ---
[facility] Accession Number: [id number] No. of containers..02 Tissue . 01 Material submitted: . PART A: duodenum - DUODENUM BIOPSY PART B: gastrointestinal site - ANTRUM BIOPSY . 01 Diagnosis: A. DUODENUM, BIOPSY: Duodenal mucosa with no diagnostic abnormality. Negative for active inflammation, features of sprue, dysplasia, or malignancy. . B. GASTRIC ANTRUM, BIOPSY: Gastric antral mucosa with mild chronic inflammation. Negative for Helicobacter organisms by immunohistochemistry. Negative for intestinal metaplasia. Negative for dysplasia or malignancy. [facility] 06/24/2025 1326 Local . 01 Electronically signed: . Justin Arriaga MD, PhD, Pathologist NPI- [id number] . 01 Gross description: . Part A: DUODENUM BIOPSY: Received in formalin are multiple fragment(s) of nunn, soft tissue measuring 0.1 x 0.1 x 0.1 cm to 0.5 x 0.2 x 0.2 cm submitted entirely in 1 cassette(s) Part B: ANTRUM BIOPSY: Received in formalin are 3 fragment(s) of nunn, soft tissue measuring 0.2 x 0.2 x 0.2 cm to 0.4 x 0.2 x 0.2 cm submitted entirely in 1 cassette(s) /[facility] 06/21/2025 2353 Local . 01 Microscopic: . B. An immunohistochemical stain was performed to evaluate for Helicobacter organisms and is negative. The control stain showed appropriate reactivity. . * This test was developed and the performance characteristics were validated by [employer]. It has not been cleared or approved by the U.S. Food and Drug Administration. . 01 Pathologist provided ICD-10: K29.70 . 01 CPT . 088647, 926636, N91140 Specimen Comment: A courtesy copy of this report has been sent to [phone] Performed at: [address] [facility] [address] [facility], [place], [place] [id number] MD Bryce Mcdonnell MD Phone: [phone]
[2025-06-16] MEDS: LACTATED RINGERS 1,000 ML 100 ML IV (13:12)
[2025-06-16 13:15] VITALS: BP 146/78; PULSE 57; RESP 16; TEMP 36.6; O2SAT 98
--- NOTE | 2025-06-16 14:33 | P.HP_ITS ---
History of Present Illness History of Present Illness Date Patient Seen: 06/16/25 Time Patient Seen: 14:33 Chief complaint: EGD w/poss bx Narrative: Isacc is a 74-year-old man who presents for an EGD because of a history of Helicobacter pylori. He has had no symptoms since I saw him last. 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 Tinnitus (~2012) Bhumika's disease Surgical History History of tonsillectomy H/O hernia repair (~1957) History of colonoscopy (~2012) History of surgery on arm (~09/18/15) Social History (Updated 01/28/25 @ 16:00 by Vy Sam MA) marital status: household members: spouse lives independently: Yes pets and animals: No occupational status: previously employed special soledad needs: No travel history: over 6 months ago leisure activities: exercise, music, reading and volunteer work seatbelt use: always water heater temp set < 120 deg: Yes working smoke detector in home: Yes fire extinguisher in home: Yes carbon monox detector in home: No firearms in home: Yes firearms unloaded and locked: Yes do you feel safe at home: Yes Smoking Status: Never smoker alcohol intake: current substance use type: does not use during the past year weight has: remained stable well-balanced diet: daily or most days daily servings fruits/ve-4 caffeine: Yes eating out: 1-3 times/week Type(s) of exercise: walking, aerobic, regular exercise, resistance training and yoga frequency: 3-4 times per week duration: 45-60 minutes/day Meds Home Medications and Allergies Home Medications ?Medication ?Instructions ?Recorded ?Confirmed ?Type cholecalciferol (vitamin D3) 25 1,000 unit PO DAILY 04/19/25 History mcg (1,000 unit) capsule (Vitamin D3) [id number]-hopwbj 1 tab PO DAILY 06/05/18 0 04/19/25 History tablet (Multivitamin 50 Plus tablet) vit C 250 mg-vit E 90 mg-zinc 40 1 tab PO BID 06/11/18 04/19/25 History mg-copper 1 aj-tlrhlm-pojcnj capsule (PreserVision AREDS-2) ashwagandha extract PO 01/15/24 04/19/25 History coenzyme Q10 [Ultra CoQ10] PO 01/15/24 04/19/25 Histor y magnesium chloride PO 01/15/24 04/19/25 History omega-3 fatty acids [Fish Oil] PO 01/15/24 04/19/25 Hi story vitamin K2 PO 01/15/24 04/19/25 History Saccharomyces boulardii 10 billion 10,000 mmu cells PO DAILY 05/14/24 04/19/25 History cell capsule Parasitic GI infection ondansetron 4 mg disintegrating 4 mg PO Q8H PRN nausea and 01/05/25 04/19/25 Rx tablet vomiting #20 tabs sucralfate 1 gram tablet (Carafate) 1 g PO BID #28 tab s 01/12/25 04/19/25 Rx Kefir probiotic PO 01/28/25 04/19/25 History Allergies Allergy/AdvReac Type Severity Reaction Status Date / Time No Known Drug Allergies Allergy Verified 06/16/25 13:13 Exam Vital Signs (past 8 hours): - 06/16/25 13:15 Temperature 97.8 F Pulse Rate 57 L Respiratory Rate 16 Blood Pressure 146/78 H Pulse Oximetry 98 Oxygen Delivery Method Room Air Oxygen Delivery Method Room Air Const General: healthy appearing Assessment & Plan Assessment and plan (1) Helicobacter pylori (H. pylori): Status: Acute Plan Esophagogastroduodenoscopy Time-Based Coding :: [TOTAL MINUTES] spent with patient and on the chart (including review of chart, obtaining history, exam, reviewing outside data, placing orders, documenting exam and treatment plan, and counseling patient) on [DATE]. PROFEE Refrigerator Room Clerk Document charge(s): No
--- NOTE | 2025-06-16 14:41 | SUR.OPER ---
Endoscope [id number] used
--- NOTE | 2025-06-16 14:49 | P.OP.EGD_ITS ---
Operative Date/Time/Diagnoses Date of procedure: 06/16/25 Time of procedure: 14:49 Pre-op diagnosis: History of Helicobacter pylori Post-op diagnosis: same Procedure & Clinicians Study performed: Esophagogastroduodenoscopy Same procedure(s) as scheduled: Yes Surgeon: Julio Armstrong Anesthesia Type: MAC +/- Procedure Notes Procedure in detail: Surgeon: Julio Armstrong MD Anesthesia: Mamta Cochran RADIOLOGY PHYSICIAN A timeout was performed. A bite blocked was placed. The patient was positioned in the left lateral decubitus position. Anesthesia was administered. The endoscope was inserted through the bite block and passed through the esophagus and stomach and into the duodenum. The duodenal mucosa appeared normal. Random biopsies were taken with cold forceps. The scope was withdrawn into the duodenal bulb and abnormalities seen. The scope was withdrawn into the stomach. The antrum appeared normal however random biopsies were taken forceps. The rest of the stomach was normal. The scope was retroflexed and no hiatal hernia was seen. The scope was withdrawn into the esophagus and no abnormalities were found in the esophagus. The remainder of the esophagus was normal. The scope was withdrawn. The patient was awakened and brought to recovery. Sedation time: 6 minutes Findings: Grossly normal EGD Post-procedure Disposition: PACU
[2025-06-16 14:56] VITALS: BP 135/72; PULSE 57; RESP 20; TEMP 36.3; O2SAT 96
[2025-06-16 15:02] VITALS: BP 125/72; PULSE 67; RESP 18; TEMP 36.4; O2SAT 96
[2025-06-16 15:28] VITALS: BP 125/77; PULSE 65; RESP 18; TEMP 36.4; O2SAT 99
== END 2025-06-16 15:29 | disposition home or self-care (01) ==
PROVIDERS: PCP Family Medicine; Referring Provider Surgery; Visit Provider Surgery
PROC: 0DJ08ZZ Inspection of Upper Intestinal Tract, Via Natural or Artificial Opening Endoscopic (ICD-10-PCS; CPT 43239; principal; 2025-06-16 15:00)
DX: Z87.19 Personal history of other diseases of the digestive system (principal); K29.50 Unspecified chronic gastritis without bleeding
CPT/HCPCS: 43239; J2704